=== PATIENT | male | born 1955 | race African-American/Black ===

== ENCOUNTER 2016-08-23 22:03 | Inpatient (IN) ==
[2016-08-23] MEDS ORDERED: ALBUTEROL/IPRATROPIUM 3 ML NEB RESP TX STA (23:14)
--- NOTE | 2016-08-23 23:17 | Emergency Department Note ---
Arrival - Arrival Chief Complaint: Chest Pain Stated Complaint: chest pains ED Nursing Triage Note: Chest pain on the right side "feels like pressure and some sticking me in the chest with a knife sometimes" hurts when he cough and takes a deep breath. Also c/o right jaw pain Denies any SOB Mode of Arrival: Wheelchair Limitations: No Limitations Source: Patient Time Seen by Provider: 08/23/16 23:03 - History of Present Illness HPI Narrative: Patient complains of sharp right sided chest pain for the past 3 days. He is also had a cough productive of laureano sputum. The pain is worse with cough, deep breath and movement. He denies nausea vomiting, shortness of breath or diaphoresis. He does have a history of CAD with a stent placed in 2009. He also has a history of hypertension, diabetes, high cholesterol and smoking. Allergies/Adverse Reactions: Allergies Allergy/AdvReac Type Severity Reaction Status Date / Time Penicillins Allergy Mild HIVES Verified 12/04/15 09:29 Home Medications: Home Medications Medication Instructions Recorded Confirmed Type Aspirin/Calcium Carbonate/Mag 81 mg PO DAILY 07/20/15 12/04/15 History [Aspirin Buffered 325 mg Tab] Clopidogrel [Plavix] 75 mg PO DAILY 07/20/15 12/04/15 History Ipratropium/Albuterol Inhaler 3 puff INH TID 07/20/15 12/04/15 History [Combivent Respimat Inhaler] Levofloxacin Tab [Levaquin Tab] 500 mg PO DAILY #7 tablet 07/20/15 12/04/15 Rx Metoprolol Succinate 100 mg PO BID 07/20/15 12/04/15 History Potassium Chloride 20 meq PO BID 07/20/15 12/04/15 History Trazodone HCl 50 mg PO BEDTIME PRN 07/20/15 12/04/15 History amLODIPine [Norvasc] 10 mg PO DAILY 07/20/15 12/04/15 History hydroCHLOROthiazide 25 mg PO DAILY 07/20/15 12/04/15 History [Hydrochlorothiazide] Doxycycline Hyclate 100 mg PO DAILY 12/04/15 12/04/15 History Lisinopril 20 mg PO BID 12/04/15 12/04/15 History Magnesium Oxide 420 mg PO BID 12/04/15 12/04/15 History Omeprazole [Prilosec] 40 mg PO BID 12/04/15 12/04/15 History Pravastatin Sodium [Pravachol] 40 mg PO DAILY 12/04/15 12/04/15 History hydrOXYzine HCL TAB [Atarax Tab] 25 mg PO BEDTIME PRN 12/04/15 12/04/15 History HYDROcodone/ACETAMIN 7.5-325 1 tablet PO Q4H PRN #30 tablet 12/05/15 Rx [[place] 7.5-325] Ketorolac Tab [Toradol Tab] 10 mg PO Q4H #10 tablet 12/27/15 Rx oxyCODONE/ACETAMINOPHEN 5-325 1 tablet PO Q4H #10 tablet 12/27/15 Rx [Percocet 5-325] methylPREDNISolone DOSEPAK [Medrol 4 mg PO DAILY #21 tablet 06/16/16 Rx Dosepak] traMADol TAB [Ultram] 50 mg PO Q6H PRN #20 tablet 06/16/16 Rx Review of System - Review of System 12 point system: reviewed and no additional remarkable complaints except as stated - Review of System Constitutional: Present: chills. Absent: diaphoresis, fever Head/Ears/Nose/Throat: Absent: nasal drainage, sore throat Respiratory: Present: cough. Absent: respiratory distress, wheezing Cardiovascular: Present: chest pain. 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) Neurology: No history of: Seizures HEENT: History of: Eye Problem (glasses) Endocrine: History of: Diabetes Mellitus (NIDDM) (Resolved), Dyslipidemia, Thyroid Disorder (dr sanchez III monitoring) Respiratory: History of: Bronchitis, Obstructive Sleep Apnea, Pneumonia (2015) Genitourinary: History of: Kidney Stones Gastrointestinal: History of: GERD, Polyps (removed) Musculoskeletal: History of: Back/Neck Problems (lower back pain) Other: History of: Eczema - Surgical History Cardiac Surgeries: Sugical HX of: Cardiac Catheterization (1 stent) Thoracic Surgeries: Surgical HX of;: Lithotripsy Abdominal Surgeries: Surgical HX of: Cholecystectomy (12/04/15), Colonoscopy, EGD Orthopedic Surgeries: Comment Only: Implanted Devices (1 cardiac stent) - Family History Family History: Reports;: Family Heart Disease (mother and father) - Social History Smoking Status: Current every day smoker Exam Physical Examination: GENERAL: Alert. No acute distress. HEENT: Normocephalic and atraumatic. There is no nasal drainage. No pharyngeal erythema or exudate. NECK: Normal inspection. Supple. No lymphadenopathy or meningismus. LUNGS: No respiratory distress. Good air movement. Wheezes bilaterally. HEART: Regular rate and rhythm. ABDOMEN: Soft, nontender and nondistended with normoactive bowel sounds. BACK: Normal inspection. SKIN: Color normal. Warm and dry. EXTREMITIES: Nontender. Normal range of motion. No pedal edema. NEUROLOGICAL/PSYCHIATRIC: Alert and oriented 3 with normal mood and affect. Cranial nerves normal. No motor or sensory deficit. Vital Signs: Vital Signs Temperature 97 F L 08/23/16 22:30 Pulse Rate 79 08/23/16 23:40 Respiratory Rate 16 08/23/16 23:40 Blood Pressure 166/75 08/23/16 22:30 O2 Sat by Pulse Oximetry 100 08/23/16 23:40 Course - Reevaluation(s) Reevaluation #1: Patient has remained stable in the ER. All of his cardiac workup is negative. I think his chest pain is more related to his bronchitis. He does have an area of atelectasis versus infiltrate in the left lower lobe. His white count is normal and he is afebrile and I favor atelectasis. His wheezing is a little bit improved after the nebulizer, however, his oxygen saturations are still 88-90% on room air. I think he will need to be admitted for nebs and steroids and possibly antibiotics. I have discussed this with Dr. Merchant and he will see the patient and admit. Time: 01:36 Results - Labs CBC & BMP: 08/23/16 22:59 08/23/16 22:59 Lab Results: I have reviewed the patients labs Labs: Laboratory Tests 08/23/16 08/23/16 22:59 22:59 INR 1.0 D-Dimer, Quantitative <= 0.5 CK-MB (CK-2) < 1.0 Troponin I < 0.015 - Impressions Chest x-ray shows some density in the left lower lobe consistent with atelectasis versus infiltrate. Disposition Clinical Impression: Chest pain, Bronchitis Case discussed with: patient, patient's family Disposition: Still a Patient Condition: Stable Time of Disposition: 01:34
[2016-08-23 23:31] LABS: Basophils # 0.1 10*3/uL (0.0-0.2); Basophils % 0.9 % (0.0-0.8); Eosinophils # 0.2 10*3/uL (0.0-0.87); Eosinophils % 4.1 % (0.00-10.9); Hematocrit 41.8 VOL% (42.0-52.0); Immature Granulocytes % 0.3 %; Immature Granulocytes Absolute 0.02 #; Lymphocytes # 1.4 10*3/uL (1.4-4.0); Lymphocytes % 24.9 % (21.2-54.2); Mean Corpuscular HGB Conc 33.5 GM/DL (32-36); Mean Corpuscular Hemoglobin 29 PG (27-34); Mean Corpuscular Volume 86.2 FL (87-102); Mean Platelet Volume 11.7 FL (9.6-12.0); Monocytes # 0.6 10*3/uL (0.11-0.8); Monocytes % 9.8 % (1.7-12.7); Neutrophils # 3.5 10*3/uL (1.4-7.4); Platelet Count 220 T/CUMM (130-400); Red Blood Count 4.85 MC/CUMM (3.8-5.5); Red Cell Distribution Width 15.3 % (9.3-17.3); White Blood Count 5.8 T/CUMM (4-12)
[2016-08-23 23:44] LABS: D-Dimer <= 0.5 MG/L FEU; PT Patient Result 10.3 SECS; Partial Thromboplastin Time 31.1 SECS (0-40)
[2016-08-23 23:55] LABS: Alanine Aminotransferase 26 U/L (16-61); Albumin 2.9 G/DL (3.4-5.0); Alkaline Phosphatase 90 U/L (45-117); Aspartate Amino Transferase 20 U/L (0-37); Bilirubin,Total < 0.39 MG/DL (0.2-1.0); Blood Urea Nitrogen 15 MG/DL (7-18); Calcium 8.9 MG/DL (8.5-10.1); Glucose 127 MG/DL (74-106); Osmolality,Calculated 285.1 MOS/KG (273-304); Potassium 3.4 MMOL/L (3.5-5.1); Sodium 142 MMOL/L (136-145); Total Protein 6.7 G/DL (6.4-8.3)
[2016-08-23 23:57] LABS: Troponin I Only < 0.015 NG/ML (0.00-0.045)
[2016-08-24] MEDS ORDERED: ALBUTEROL/IPRATROPIUM 3 ML NEB RESP TX STA (01:35)
[2016-08-24] MEDS ORDERED: methylPREDNISolone SOD SUC 125 MG/2 ML VIAL IV STA (01:35)
[2016-08-24] MEDS ORDERED: methylPREDNISolone SOD SUC 125 MG/2 ML VIAL ONE ×2 (01:44→02:05)
[2016-08-24] MEDS ORDERED: DEXTROSE 50% 25 GM/50 ML VIAL IV PRN ×2 (02:30→04:52)
[2016-08-24] MEDS ORDERED: ACETAMINOPHEN 325 MG TABLET PO PRN (02:30)
[2016-08-24] MEDS ORDERED: ONDANSETRON 4 MG/2 ML VIAL IV PRN (02:30)
[2016-08-24] MEDS ORDERED: GLUCAGON 1 MG VIAL IM PRN ×2 (02:30→04:52)
--- NOTE | 2016-08-24 05:46 | EKG Report ---
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
[2016-08-24 06:34] LABS: Troponin I Only < 0.015 NG/ML (0.00-0.045)
--- NOTE | 2016-08-24 06:57 | XRay Report ---
Referring Physician: Mathew Barton Exam: XR chest 1V portable Date: August 23, 2016 at 11:15 PM Reason: Chest pain, cough Comparison: Chest one view portable June 16, 2016 Findings: The cardiac silhouette is normal in size for the portable technique. A left cardiophrenic fat pad is suspected. There is slight prominence of the right minor fissure, but no focal consolidation, pneumothorax or pleural effusion is identified. No acute osseous process is seen. Impression: No acute cardiopulmonary process is identified. PROCEDURE INTERPRETED AT [facility] DEPARTMENT OF RADIOLOGY Final Report Signed by: Dr. Harley Gay
[2016-08-24] MEDS ORDERED: ALBUTEROL 2.5 MG/3 ML NEB RESP TX SCH (07:00)
[2016-08-24] MEDS ORDERED: ALBUTEROL/IPRATROPIUM 3 ML NEB RESP TX SCH (07:00)
[2016-08-24 07:47] LABS: Apearance,Urine CLEAR (Clear); Bilirubin,Urine Negative (Negative); Blood, Urine Negative (Negative); Glucose,Urine (UA) 50 mg/dL (Negative); Ketones,Urine Negative (Negative); Mucus,Urine Occasional /LPF (Occasional); Nitrite,Urine Negative (Negative); Protein,Urine 100 MG/DL; RBC,Urine <1 /HPF (0-4); Squamous Epithelial Cell,Urine Occasional /HPF (0-10); Urine Color Yellow (Yellow); Urine Specific Gravity 1.008 (1.001-1.035); Urine Urobilinogen < 2.0 EU/DL (0.2-1.0); WBC,Urine <1 /HPF (0-6)
[2016-08-24] MEDS ORDERED: methylPREDNISolone SOD SUC 125 MG/2 ML VIAL IV SCH (08:00)
[2016-08-24] MEDS: INSULIN REGULAR 100 UNIT/ML SUBCUT SCH ×4 (08:32→21:07)
[2016-08-24] MEDS ORDERED: traZODone 50 MG TABLET PO PRN (08:48)
[2016-08-24] MEDS ORDERED: hydrOXYzine HCL 25 MG TABLET PO PRN (08:48)
--- NOTE | 2016-08-24 08:49 | EKG Report ---
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
--- NOTE | 2016-08-24 08:59 | Internal Med History&Physical ---
Assessment and Plan (1) Chest pain Status: Acute Assessment and plan: 61-year-old male admitted to acute care * Chest pain. It is atypical in nature. Patient has history of coronary artery disease with prior stent and myocardial infarction. Will check CT angiogram of chest PE study. * History of coronary artery disease. Enzymes are negative. Will consult cardiology * Diabetes. Patient has been on Metformin. Will continue him on a sliding scale and will hold metformin for now. * Hypertension. Blood pressure is stable * COPD. Will continue Combivent inhaler. * Discussed with patient Current Visit: Yes (2) History of coronary artery disease Status: Acute Current Visit: Yes (3) Hypertension Status: Acute Current Visit: Yes (4) Diabetes Status: Acute Current Visit: Yes (5) COPD (chronic obstructive pulmonary disease) Status: Acute Current Visit: Yes History of Present Illness Chief complaint: Chest pain and shortness of breath History of present illness: Mr. Rosalio Samaniego is a 61 year old male with history of multiple medical problems including COPD, essential hypertension, coronary artery disease, diabetes, hyperlipidemia, osteoarthritis who was admitted through the emergency room with 3 day history of pleuritic type chest pain on the right side. Patient is a chronic smoker. Pain is associated with coughing and on taking a deep breath. He has coughed up phlegm. This time pain has been going on for about 3 days. He denies any nausea vomiting or diarrhea. He came to the ER just to make sure it was not his heart. He was seen in the office last week with right-sided abdominal pain. Patient had some hematuria and was set up for a renal colic CT. He denies any fever or chills. His energy level is fairly good. Patient is a single and lives alone. He is a chronic smoker but does not drink alcohol Home Medications Medication Instructions Recorded Confirmed Type Aspirin/Calcium Carbonate/Mag 81 mg PO DAILY 07/20/15 08/24/16 History [Aspirin Buffered 325 mg Tab] Clopidogrel [Plavix] 75 mg PO DAILY 07/20/15 08/24/16 History Ipratropium/Albuterol Inhaler 3 puff INH TID PRN 07/20/15 08/24/16 History [Combivent Respimat Inhaler] Metoprolol Succinate 100 mg PO BID 07/20/15 08/24/16 History Potassium Chloride 20 meq PO BID 07/20/15 08/24/16 History Trazodone HCl 50 mg PO BEDTIME PRN 07/20/15 08/24/16 History amLODIPine [Norvasc] 10 mg PO DAILY 07/20/15 08/24/16 History hydroCHLOROthiazide 37.5 mg PO DAILY 07/20/15 08/24/16 History [Hydrochlorothiazide] Lisinopril 20 mg PO BID 12/04/15 08/24/16 History Magnesium Oxide 420 mg PO BID 12/04/15 08/24/16 History Omeprazole [Prilosec] 40 mg PO BID 12/04/15 08/24/16 History Pravastatin Sodium [Pravachol] 40 mg PO DAILY 12/04/15 08/24/16 History hydrOXYzine HCL TAB [Atarax Tab] 25 mg PO BEDTIME PRN 12/04/15 08/24/16 History HYDROcodone/ACETAMIN 7.5-325 1 tablet PO Q4H PRN #30 tablet 12/05/15 08/24/16 Rx [[place] 7.5-325] Allergies Allergy/AdvReac Type Severity Reaction Status Date / Time Penicillins Allergy Mild HIVES Verified 12/04/15 09:29 Medical,Surgical,& Family Hx - Medical History Cardio: History of: CAD, Hypertension, [place] (x3 2010), 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) Neurology: No history of: Seizures HEENT: History of: Eye Problem (glasses) Endocrine: History of: Diabetes Mellitus (NIDDM) (Resolved), Dyslipidemia, Thyroid Disorder (dr sanchez III monitoring) Respiratory: History of: Bronchitis, Obstructive Sleep Apnea, Pneumonia (2015) Genitourinary: History of: Kidney Stones Gastrointestinal: History of: GERD, Polyps (removed) Musculoskeletal: History of: Back/Neck Problems (lower back pain) Other: History of: Eczema - Surgical History Cardiac Surgeries: Sugical HX of: Cardiac Catheterization (1 stent) Thoracic Surgeries: Surgical HX of;: Lithotripsy Abdominal Surgeries: Surgical HX of: Cholecystectomy (12/04/15), Colonoscopy, EGD Orthopedic Surgeries: Comment Only: Implanted Devices (1 cardiac stent) - Family History Family History: Reports;: Family Cancer, Family Heart Disease (mother and father ) - Social History Smoking Status: Current every day smoker Frequency of Alcohol Use: None Type of Drug Use: None Marital Status: Single Lives With:: Alone Functional capacity: independent ambulation 12 point system: reviewed and no additional remarkable complaints except as stated (As mentioned in HPI) Exam - Constitutional Vitals: Period Temp Pulse Resp BP Sys/Tapia Pulse Ox Last 24 Hr 96.5 F-97.8 F 80-88 19-20 152-158/73-74 95-96 Exam: Examination: GENERAL: NAD. HEENT: PERRLA. EOMI. Mucous membranes are moist. NECK: Neck is supple. No JVD. No carotid bruit. No thyromegaly. CVS: Regular rate and rhythm. S1 and S2 are normal. RESPIRATORY: Lungs are clear. ABDOMEN: Soft and nontender. Bowel sounds are present. No hepatosplenomegaly. EXT: No edema. Peripheral pulses are present. 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 Cranial nerves II through XII are grossly intact. Motor strength is 5 over 5 both upper and lower extremities. SKIN: Warm and dry. MSK: No obvious deformity. Results - Labs CBC & BMP: 08/23/16 22:59 08/23/16 22:59 Lab Results: I have reviewed the past 24 hour labs Quality Measures - Stroke Symptom Onset Unknown: No
[2016-08-24] MEDS ORDERED: ALBUTEROL/IPRATROPIUM 3 ML NEB RESP TX PRN (09:00)
[2016-08-24] MEDS ORDERED: PANTOPRAZOLE 40 MG TABLET PO SCH (09:00)
[2016-08-24] MEDS ORDERED: hydroCHLOROthiazide 25 MG TABLET PO SCH (09:00)
[2016-08-24] MEDS ORDERED: amLODIPine 10 MG TABLET PO SCH (09:00)
[2016-08-24] MEDS ORDERED: DOCUSATE SODIUM 100 MG CAPSULE PO SCH (09:00)
[2016-08-24] MEDS: MAGNESIUM OXIDE 400 MG TABLET PO SCH ×2 (09:13→21:08)
[2016-08-24] MEDS: ASPIRIN EC 81 MG TABLET PO SCH (09:20)
[2016-08-24] MEDS: CLOPIDOGREL 75 MG TABLET PO SCH (09:20)
[2016-08-24] MEDS: ENOXAPARIN 40 MG/0.4 ML SYRINGE SUBCUT SCH (09:20)
[2016-08-24] MEDS: POTASSIUM CHLORIDE 20 MEQ TABLET PO SCH ×2 (09:20→21:08)
[2016-08-24] MEDS: PANTOPRAZOLE 40 MG TABLET PO SCH ×2 (09:20→21:08)
[2016-08-24] MEDS: METOPROLOL SUCCINATE XL 100 MG TABLET PO SCH ×2 (09:20→21:08)
[2016-08-24] MEDS: LISINOPRIL 20 MG TABLET PO SCH ×2 (09:20→21:08)
--- NOTE | 2016-08-24 14:06 | CT Report ---
EXAM: CT chest PE study DATE: August 24, 2016 COMPARISON: CT abdomen and pelvis December 31, 2011 REASON: Pleuritic type chest pain TECHNIQUE: Axial images of the chest were obtained after administration of 150 cc of Omnipaque 350 intravenous contrast. Coronal and sagittal reformatted images were also acquired. The study was performed per pulmonary embolism protocol. Total DLP was 650.2 mGy*cm. FINDINGS: Pulmonary arteries: There is no evidence of pulmonary embolism through the segmental pulmonary arteries. Vascular/heart: The thoracic aorta is normal in size without evidence of dissection. There is mild scattered calcified plaque at the arteries. The heart is normal in size. No pericardial effusion is seen. Lymph nodes: There are a few upper normal-sized mediastinal and bilateral hilar lymph nodes. An AP window lymph node measures 0.8 cm in short axis diameter on image 58. Other mediastinum/lower neck: The thyroid is enlarged, and there is a poorly characterized nodule within the right thyroid lobe. Correlation with ultrasound would be helpful. Chest wall: Unremarkable. Lungs: There are minimal scattered opacities within both lungs, mainly within the lower lobes. This is most consistent with atelectasis. A 0.4 cm noncalcified nodule is seen within the basilar portion of the left lower lobe near the major fissure on image 96. This is stable compared to December 31, 2011, suggesting a benign process. There is also [id number] emphysema, mainly in a centrilobular distribution at the upper lung zones. No pneumothorax or pleural effusion is identified. Bones: There is mild degenerative change at the thoracic spine. No acute osseous process is seen. Upper abdomen: The patient is status post cholecystectomy. No acute process is seen within the upper abdomen. IMPRESSION: 1. No evidence of pulmonary embolism. 2. There are minimal scattered opacities within both lungs. This is most consistent with atelectasis. 3. Kpzc-[id number]-rzxrzadp emphysema. 4. Thyromegaly and nonspecific right thyroid nodule. Correlation with a thyroid ultrasound would be helpful. PROCEDURE INTERPRETED AT [facility] DEPARTMENT OF RADIOLOGY Final Report Signed by: Dr. Harley Gay
--- NOTE | 2016-08-24 14:26 | Cardiology Consult Note ---
I, Catarina Samayoa RN, am scribing for, and in the presence of, Wade Diego MD 14:21. Assessment and Plan - Time spent with patient Time spent with patient: Greater than 30 minutes (Due to assessment, planning, documentation, and medication review) (1) Chest pain Status: Acute Assessment and plan: The patient has very atypical chest pain. His symptoms sound pleuritic. His cardiac enzymes are all negative. His EKG doesn't show any acute changes. From my standpoint, I think could be discharged home. With his previous cardiac history, I think it would be appropriate to do a routine outpatient cardiac ischemic screening. I would like to set him up for a nuclear stress test in the clinic and a follow-up after that. Current Visit: Yes (2) History of coronary artery disease Status: Chronic Assessment and plan: History of acute MN in 2009, and he underwent percutaneous coronary intervention of mid right coronary artery using Taxus stent. Current Visit: Yes (3) Hypertension Status: Chronic Assessment and plan: Suboptimally controlled. I'm going to make some adjustments in his medication to try to optimize this. Current Visit: Yes (4) COPD (chronic obstructive pulmonary disease) Status: Chronic Current Visit: Yes (5) Tobacco abuse Status: Acute Current Visit: Yes (6) Diabetes Status: Acute Current Visit: Yes (7) Wheezing Status: Acute Assessment and plan: This is most likely related to his tobacco abuse. Smoking cessation was discussed today. Current Visit: Yes (8) Hypokalemia Status: Acute Assessment and plan: I think the hydrochlorothiazide is depleting his potassium. I'm going to stop this and try Aldactone instead. Current Visit: Yes History of Present Illness - Data of Consult Patient: new to practice Consult date: 08/24/16 Requesting Physician: Joel Rothman - Consult Narrative Reason for consult: chest pain History of present illness: PRIMARY DIRECTOR FIELD SERVICES[place] Mr. Rosalio Samaniego is a 61 year old black male not routinely followed by [facility]. Past medical history includes CAD, previous MN with emergent percutaneous coronary intervention of mid right coronary artery in 2009. Also has a history of COPD, hypertension, diabetes, hyperlipidemia, osteoarthritis, and he is a chronic smoker. He presented to the emergency room yesterday evening with complaints of chest pain that was associated with taking in a deep breath and also with severe coughing with onset being approximately 3 days prior. Twelve-lead EKG negative for acute ischemic changes. Serial cardiac biomarkers have been normal. Cardiology has been consulted to evaluate for complaints of chest pain. He is unsure when he has last seen a data analytics developer, and he does not routinely follow-up. He also is not sure when he last had an echocardiogram. Reports he has had a stress test in the last few years, but is unable to recall exactly when. He does report that he was unable to walk on the treadmill due to lower leg pain, and underwent nuclear evaluation. Reports he lived in [place], [place], at the time of his previous heart attack and emergent PCI. During exam, chest pain is non-reproducible. The patient's chest pain is described as mild to moderate and sharp in character, and on the right side of his chest. This is associated with a deep breath or coughing. This sounds pleuritic. He does not have any typical exertional angina. He does have significant wheezing, consistent with his tobacco abuse and/or bronchitis. The chest pain does not radiate. There are no associated symptoms such as nausea or diaphoresis. Reports he experiences these chest pains usually when he "gets to coughing real bad." Denies discomfort as being similar to S/S associated with previous MN. Denies recent or current dypnea on exertion, orthopnea, PND, palpitations, dizziness, presyncope, or other overt anginal complaint. He is currently anticoagulated with Plavix and ASA 325 mg. Labs reviewed. As above. Chemistry yesterday with potassium of 3.2 (PO supplement currently), sodium 142, creatinine 0.8 with GFR 119. Systolic BP 150- 175 mmHg. Current Medications Hydrocodone Bitart/Acetaminophen ([place] 7.5-325) 1 tablet PO Q4H PRN PRN Reason: Pain Moderate (4-7) Albuterol/Ipratropium (Duoneb) 3 ml RESP TX TID PRN PRN Reason: Shortness of Breath Amlodipine Besylate (Norvasc) 10 mg PO DAILY [facility] Last Admin: 08/24/16 09:20 Dose: 10 mg Aspirin () 81 mg PO DAILY [facility] Last Admin: 08/24/16 09:20 Dose: 81 mg Clopidogrel Bisulfate (Plavix) 75 mg PO DAILY [facility] Last Admin: 08/24/16 09:20 Dose: 75 mg Dextrose/Water (D50) 25 gm IV PRN PRN PRN Reason: Hypoglycemia with IV access Enoxaparin Sodium (Lovenox) 40 mg SUBCUT Q24H [facility] Last Admin: 08/24/16 09:20 Dose: 40 mg Glucagon () 1 mg IM PRN PRN PRN Reason: Hypoglycemia w/o IV access Hydrochlorothiazide () 37.5 mg PO DAILY [facility] Last Admin: 08/24/16 09:20 Dose: 37.5 mg Hydroxyzine HCl (Atarax Tab) 25 mg PO BEDTIME PRN PRN Reason: Itching Insulin Human Regular (Humulin R) 0 unit SUBCUT ACHS [facility] PRN Reason: Protocol Last Admin: 08/24/16 08:32 Dose: 6 unit Lisinopril (Prinivil) 20 mg PO BID [facility] Last Admin: 08/24/16 09:20 Dose: 20 mg Magnesium Oxide () 400 mg PO BID [facility] Last Admin: 08/24/16 09:13 Dose: 400 mg Metoprolol Succinate (Toprol Xl) 100 mg PO BID [facility] Last Admin: 08/24/16 09:20 Dose: 100 mg Pantoprazole Sodium (Protonix Tab) 40 mg PO BID [facility] Last Admin: 08/24/16 09:20 Dose: 40 mg Potassium Chloride (K Dur) 20 meq PO BID [facility] Last Admin: 08/24/16 09:20 Dose: 20 meq Pravastatin Sodium (Pravachol) 40 mg PO BEDTIME SB Trazodone HCl (Desyrel) 50 mg PO BEDTIME PRN PRN Reason: Sleep CC: Joel Rothman MD - Home Medications and Allergies Home Medications: Home Medications Medication Instructions Recorded Confirmed Type Aspirin/Calcium Carbonate/Mag 325 mg PO DAILY 07/20/15 08/24/16 History [Aspirin Buffered 325 mg Tab] Clopidogrel [Plavix] 75 mg PO DAILY 07/20/15 08/24/16 History Ipratropium/Albuterol Inhaler 3 puff INH TID PRN 07/20/15 08/24/16 History [Combivent Respimat Inhaler] Metoprolol Succinate 100 mg PO BID 07/20/15 08/24/16 History Potassium Chloride 20 meq PO BID 07/20/15 08/24/16 History Trazodone HCl 50 mg PO BEDTIME PRN 07/20/15 08/24/16 History amLODIPine [Norvasc] 10 mg PO DAILY 07/20/15 08/24/16 History hydroCHLOROthiazide 12.5 mg PO DAILY 07/20/15 08/24/16 History [Hydrochlorothiazide] Lisinopril 20 mg PO BID 12/04/15 08/24/16 History Magnesium Oxide 420 mg PO DAILY 12/04/15 08/24/16 History Omeprazole [Prilosec] 40 mg PO BID 12/04/15 08/24/16 History Pravastatin Sodium [Pravachol] 80 mg PO DAILY 12/04/15 08/24/16 History hydrOXYzine HCL TAB [Atarax Tab] 25 mg PO BEDTIME PRN 12/04/15 08/24/16 History HYDROcodone/ACETAMIN 7.5-325 1 tablet PO Q4H PRN #30 tablet 12/05/15 08/24/16 Rx [[place] 7.5-325] Cetirizine HCl [ZyrTEC Cap] 10 mg PO DAILY 08/24/16 08/24/16 History Clopidogrel [Plavix] 75 mg PO DAILY 08/24/16 08/24/16 History Ipratropium/Albuterol Inhaler 1 puff INH QID 08/24/16 08/24/16 History [Combivent Respimat Inhaler] Metoclopramide Tab [Reglan Tab] 10 mg PO ACHS 08/24/16 08/24/16 History Nitroglycerin 0.4 mg/Hr Patch 0.4 mg SL DAILY PRN 08/24/16 08/24/16 History [Nitro-Dur 0.4 mg/hr Patch] Tramadol HCl [Tramadol Tab] 50 mg PO Q6H PRN 08/24/16 08/24/16 History metFORMIN [Glucophage] 1,000 mg PO BID W/MEALS 08/24/16 08/24/16 History Allergies/Adverse Reactions: Allergies Allergy/AdvReac Type Severity Reaction Status Date / Time Penicillins Allergy Mild HIVES Verified 12/04/15 09:29 - Constitutional Constitutional: Absent: anorexia, chills, daytime sleepiness, excessive sweating , fever(s), frequent falls, night sweats, stops breathing during sleep, weakness , weight gain, weight loss - EENT Eyes: Absent: blurry vision, loss of vision Ears: Absent: decreased hearing Nose, mouth and throat: Absent: dysphagia, epistaxis, nasal congestion, neck pain, throat swelling, tongue swelling, vertigo - Cardiovascular Cardiovascular: Present: chest pain at rest (nonreproducible; associated with severe coughing and taking in a deep breath). Absent: chest pain with activity , claudication, diaphoresis, dyspnea, dyspnea on exertion, edema, radiating jaw , neck or arm pain, lightheadedness, orthopnea, palpitations, PND - Respiratory Respiratory: Present: cough, change in phlegm color (laureano colored). Absent: dyspnea, hemoptysis, dyspnea on exertion, wheezing - Gastrointestinal Gastrointestinal: Absent: abdominal pain, bloating, diarrhea, dysphagia, heartburn, hematochezia, melena, nausea, vomiting, jaundice - Genitourinary Genitourinary: Present: hematuria (none presently; seen by Dr. Rothman in office last week for c/o. For renal colic CT). Absent: difficulty urinating, dysuria, flank pain, nocturia - Musculoskeletal Musculoskeletal: Present: arthralgias. Absent: limited range of motion - Neurological Neurological: Absent: abnormal gait, abnormal speech, confusion, dizziness, frequent falls, syncope, tremor(s) - Psychiatric Psychiatric: Absent: anxiety, depression - Endocrine Endocrine: Absent: cold intolerance, heat intolerance - Hematologic/Lymphatic Hematologic/Lymphatic: Absent: easy bleeding, easy bruising Medical,Surgical,& Family Hx - Medical History Cardio: History of: CAD, Hypertension, MN (2010; acute MN), Cardiovascular Problems (data analytics developer at [facility] pt unsure of name) No history of: Cardiac Dysrhythmia, PVD, Valvular Heart Disease Psychological: No history of: Anxiety Disorders, Depression Neurology: No history of: Seizures, TIA, Vertigo HEENT: History of: Eye Problem (corrective lenses) Endocrine: History of: Diabetes Mellitus (NIDDM) (Resolved), Dyslipidemia, Thyroid Disorder (dr sanchez III monitoring) Rheumatology: No history of;: Gout Respiratory: History of: Bronchitis, Obstructive Sleep Apnea, Pneumonia (2015) Genitourinary: History of: Kidney Stones Gastrointestinal: History of: GERD, Polyps (removed) No history of: Gastrointestinal Bleed Musculoskeletal: History of: Back/Neck Problems (lower back pain) Hematology: No history of: Bleeding Problems Other: History of: Eczema - Surgical History Cardiac Surgeries: Sugical HX of: Cardiac Catheterization (PCI mRCA 2009) Thoracic Surgeries: Surgical HX of;: Lithotripsy Abdominal Surgeries: Surgical HX of: Cholecystectomy (12/04/15), Colonoscopy, EGD Orthopedic Surgeries: Comment Only: Implanted Devices (1 cardiac stent) - Family History Family History: Reports;: Family Cancer, Family Heart Disease (mother and father ) - Social History Smoking Status: Current every day smoker Frequency of Alcohol Use: None Type of Drug Use: None Physical Examination Vital Signs Temp Pulse Resp BP Pulse Ox 97 F L 80 20 166/75 93 L 08/23/16 22:30 08/23/16 22:30 08/23/16 22:30 08/23/16 22:30 08/23/16 22:30 General: Present: Appears Well, No Apparent Distress HEENT: Present: PERRL, Mucus Membranes Moist Neck: Present: Supple Neck, Midline Trachea, No JVD/HJR, No Masses, No Bruit Cardiac: Present: Reg Rate and Rhythm, No Murmur. Absent: Tachycardia, Bradycardia Lungs: Present: Decreased Breath Sounds, Wheezes, No Rales Neuro: Present: Cranial Nerve 2-12 Intact, Grossly Intact. Absent: Tingling, Weakness, Resting Tremor, Essential Tremor Abdomen: Present: Soft, Active Bowel Sounds, No Masses. Absent: Ascites, Tender , Firm Skin: Present: Clear. Absent: Rash, Suspicious Lesions Musculoskeletal: Present: Normal Range of Motion. Absent: Erythematous Joints Gait: Present: Normal Gait Extremities: Present: No Clubbing, No Cyanosis, No Edema, Normal Upper Extr. Pulses (3+ bilaterally), Normal Lower Extr. Pulses (2+ bilaterally), Capillary Refill (normal) Result/EKG - Labs CBC & BMP: 08/23/16 22:59 08/23/16 22:59 Lab Results: I have reviewed the past 24 hour labs Labs: Laboratory Results - last 24 hr 08/24/16 08/24/16 08/24/16 05:31 07:05 07:26 POC Glucose 266 H Total Creatine Kinase 53 CK-MB (CK-2) < 1.0 Troponin I < 0.015 Urine Color Yellow Urine Appearance Clear Urine pH 6.0 Ur Specific [place] 1.008 Urine Protein 100 Urine Glucose (UA) 50 Urine Ketones Negative Urine Blood Negative Urine Nitrate Negative Urine Bilirubin Negative Urine Urobilinogen < 2.0 H Urine Leukocytes Negative Urine RBC <1 Urine WBC <1 Ur Squamous Epith Cells Occasional Urine Mucus Occasional Ur Culture Indicated? Not indicated 08/24/16 11:26 POC Glucose 241 H Total Creatine Kinase CK-MB (CK-2) Troponin I Urine Color Urine Appearance Urine pH Ur Specific [place] Urine Protein Urine Glucose (UA) Urine Ketones Urine Blood Urine Nitrate Urine Bilirubin Urine Urobilinogen Urine Leukocytes Urine RBC Urine WBC Ur Squamous Epith Cells Urine Mucus Ur Culture Indicated? - Diagnostic Findings Procedure: Chest x-ray: image reviewed by me, report reviewed by me - EKG EKG results: interpreted by me, no acute changes EKG shows: sinus rhythm Quality Measures - Stroke Symptom Onset Unknown: No I, Wade Diego MD, personally performed the services described in this documentation, ascribed by Catarina Samayoa RN in my presence, and it is both accurate and complete [id number] .
[2016-08-24] MEDS: SPIRONOLACTONE 25 MG TABLET PO SCH (14:41)
[2016-08-24] MEDS ORDERED: PRAVASTATIN 40 MG TABLET PO SCH (21:00)
[2016-08-25 06:31] LABS: Basophils % 0.2 % (0.0-0.8); Eosinophils % 0.2 % (0.00-10.9); Hematocrit 43.5 VOL% (42.0-52.0); Hemoglobin 14.5 GM/DL (14.0-18.0); Immature Granulocytes % 0.4 %; Immature Granulocytes Absolute 0.04 #; Lymphocytes # 1.4 10*3/uL (1.4-4.0); Lymphocytes % 13.7 % (21.2-54.2); Mean Corpuscular HGB Conc 33.3 GM/DL (32-36); Mean Corpuscular Hemoglobin 29 PG (27-34); Mean Corpuscular Volume 85.6 FL (87-102); Mean Platelet Volume 11.7 FL (9.6-12.0); Monocytes # 0.8 10*3/uL (0.11-0.8); Neutrophils # 8.1 10*3/uL (1.4-7.4); Neutrophils % 77.5 % (38.7-73.9); Platelet Count 228 T/CUMM (130-400); Red Blood Count 5.08 MC/CUMM (3.8-5.5); Red Cell Distribution Width 15.1 % (9.3-17.3); White Blood Count 10.4 T/CUMM (4-12)
[2016-08-25 07:40] LABS: Calcium 9.3 MG/DL (8.5-10.1); Magnesium 2.2 MG/DL (1.8-2.4); Potassium 3.9 MMOL/L (3.5-5.1)
--- NOTE | 2016-08-25 08:06 | Discharge Summary ---
Hospital Course - Hospital Course Hospital Course: Patient is a 61-year-old male with history of coronary artery disease, hypertension, diabetes, COPD who was admitted through the emergency room with the right-sided chest pain. It was atypical in nature. Patient had negative cardiac enzymes and was seen in consultation by cardiology. He also had a CT angiogram done of the chest. It was negative for any acute embolism. He does have significant emphysema. He continues to smoke. Patient's blood sugars were under good control. He has improved. He will be given Levaquin 500 mg daily for 7 days. I have again urged him to stop smoking. I will see him back in office in 2 weeks. Diagnosis - Discharge Diagnosis (1) Chest pain Status: Acute (2) History of coronary artery disease Status: Chronic (3) Hypertension Status: Chronic (4) Diabetes Status: Acute (5) COPD (chronic obstructive pulmonary disease) Status: Chronic Specialty Discharge - Follow Up or Referrals Follow up with: Wade Diego MD [Physician] - 2 Weeks (FOLLOW UP IN 2-3 WEEKS. NEED OP STRESS TEST) Discharge Plan - Discharge Data Disposition: Disch To Home/Self Care Condition at Discharge: Stable Activity: resume usual activities as tolerated - Discharge Medications New levoFLOXacin [Levaquin] 500 mg PO DAILY #7 tablet Spironolactone [Aldactone] 25 mg PO DAILY #30 tablet Continue Trazodone HCl 50 mg PO BEDTIME PRN PRN Reason: Sleep Potassium Chloride 20 meq PO BID Metoprolol Succinate 100 mg PO BID hydroCHLOROthiazide [Hydrochlorothiazide] 12.5 mg PO DAILY amLODIPine [Norvasc] 10 mg PO DAILY Ipratropium/Albuterol Inhaler [Combivent Respimat Inhaler] 3 puff INH TID PRN PRN Reason: Shortness Of Breath Clopidogrel [Plavix] 75 mg PO DAILY Aspirin/Calcium Carbonate/Mag [Aspirin Buffered 325 mg Tab] 325 mg PO DAILY hydrOXYzine HCL TAB [Atarax Tab] 25 mg PO BEDTIME PRN PRN Reason: Itching Lisinopril 20 mg PO BID Magnesium Oxide 420 mg PO DAILY Omeprazole [Prilosec] 40 mg PO BID Pravastatin Sodium [Pravachol] 80 mg PO DAILY HYDROcodone/ACETAMIN 7.5-325 [[place] 7.5-325] 1 tablet PO Q4H PRN #30 tablet PRN Reason: Pain Moderate (4-7) metFORMIN [Glucophage] 1,000 mg PO BID W/MEALS Clopidogrel [Plavix] 75 mg PO DAILY Ipratropium/Albuterol Inhaler [Combivent Respimat Inhaler] 1 puff INH QID Nitroglycerin 0.4 mg/Hr Patch [Nitro-Dur 0.4 mg/hr Patch] 0.4 mg SL DAILY PRN PRN Reason: [place] pain Metoclopramide Tab [Reglan Tab] 10 mg PO ACHS Tramadol HCl [Tramadol Tab] 50 mg PO Q6H PRN PRN Reason: pain Cetirizine HCl [ZyrTEC Cap] 10 mg PO DAILY - Follow Up or Referral Follow Up: Wade Diego MD [Physician] - 2 Weeks (FOLLOW UP IN 2-3 WEEKS. NEED OP STRESS TEST) - Forms/Instructions Additional Discharge Instructions: Appointment in office in 2-3 weeks Exam - Constitutional Vitals: Period Temp Pulse Resp BP Sys/Tapia Pulse Ox Last 24 Hr 97.4 F-98.1 F 64-92 18-74 154-161/65-85 94-97 Exam: Examination: GENERAL: NAD. HEENT: PERRLA. EOMI. NECK: Neck is supple. CVS: Regular rate and rhythm. S1 and S2 are normal. RESPIRATORY: Lungs are clear. ABDOMEN: Soft and nontender. 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 MSK: No obvious deformity. Discharge Results Procedures and tests throughout hospitalization: Pending Orders 08/26/16 04:00 BMP w/ Mg [Basic Metabolic Panel w/Mg] IN AM 08/27/16 04:00 BMP w/ Mg [Basic Metabolic Panel w/Mg] IN AM 08/28/16 04:00 BMP w/ Mg [Basic Metabolic Panel w/Mg] IN AM Labs on day of discharge: Labs from last 24 hours 08/25/16 08/25/16 08/24/16 05:39 05:39 19:38 WBC 10.4 D RBC 5.08 Hgb 14.5 Hct 43.5 MCV 85.6 L MCH 29 MCHC 33.3 RDW 15.1 Plt Count 228 MPV 11.7 Neut % (Auto) 77.5 H Lymph % (Auto) 13.7 L [place] % (Auto) 8.0 Eos % (Auto) 0.2 Baso % (Auto) 0.2 Neut # (Auto) 8.1 H Lymph # (Auto) 1.4 [place] # (Auto) 0.8 Eos # (Auto) 0.0 Baso # (Auto) 0.0 Immature Gran % 0.4 Nucleated RBC % 0.0 Immature Gran # 0.04 Nucleated RBCs # 0.00 Sodium 143 Potassium 3.9 Chloride 106 Carbon Dioxide 28 Anion Gap 12.9 BUN 14 Creatinine 0.70 GFR Calculation 126 BUN/Creatinine Ratio 20.00 Glucose 173 H POC Glucose 197 H Calculated Osmolality 289.0 Calcium 9.3 Magnesium 2.2 08/24/16 08/24/16 15:53 11:26 WBC RBC Hgb Hct MCV MCH MCHC RDW Plt Count MPV Neut % (Auto) Lymph % (Auto) [place] % (Auto) Eos % (Auto) Baso % (Auto) Neut # (Auto) Lymph # (Auto) [place] # (Auto) Eos # (Auto) Baso # (Auto) Immature Gran % Nucleated RBC % Immature Gran # Nucleated RBCs # Sodium Potassium Chloride Carbon Dioxide Anion Gap BUN Creatinine GFR Calculation BUN/Creatinine Ratio Glucose POC Glucose 259 H 241 H Calculated Osmolality Calcium Magnesium DS: Provider Date of admission: 08/24/16 02:01 Primary care physician: . No PCP Attending physician on admission: Meg Carcamo MD Consults: 08/24/16 08:49 Consult to Physician [CONS] Routine Comment: Chest pain Consulting Provider: Cardiology - [facility] Person Notified: KAT Date Notified: 08/24/16 Time Notified: 10:36 Discharging clinician: Joel Rothman MD
[2016-08-25] MEDS: LISINOPRIL 20 MG TABLET PO SCH (08:29)
[2016-08-25] MEDS: SPIRONOLACTONE 25 MG TABLET PO SCH (08:29)
[2016-08-25] MEDS: INSULIN REGULAR 100 UNIT/ML SUBCUT SCH (08:29)
[2016-08-25] MEDS: CLOPIDOGREL 75 MG TABLET PO SCH (08:29)
[2016-08-25] MEDS: MAGNESIUM OXIDE 400 MG TABLET PO SCH (08:30)
[2016-08-25] MEDS: METOPROLOL SUCCINATE XL 100 MG TABLET PO SCH (08:30)
[2016-08-25] MEDS: PANTOPRAZOLE 40 MG TABLET PO SCH (08:30)
[2016-08-25] MEDS: ASPIRIN EC 81 MG TABLET PO SCH (08:30)
[2016-08-25] MEDS: POTASSIUM CHLORIDE 20 MEQ TABLET PO SCH (08:30)
[2016-08-25] MEDS: ENOXAPARIN 40 MG/0.4 ML SYRINGE SUBCUT SCH (08:30)
[2016-08-25] MEDS ORDERED: ALBUTEROL/IPRATROPIUM 3 ML NEB RESP TX STA (08:36)
--- NOTE | 2016-08-25 09:24 | Cardiology Progress Note ---
Yao Licea Vanessa, RN, am scribing for, and in the presence of, Wade Diego MD 09:24. Assessment and Plan - Time spent with patient Time spent with patient: Greater than 30 minutes (1) Chest pain Status: Acute Assessment and plan: This patient had atypical chest pain which has completely resolved. EKG without acute changes, and cardiac enzymes are negative. From a cardiac standpoint, he can be discharged home. We're going to set him up with an outpatient cardiac ischemic screening and subsequent follow-up with me. Current Visit: Yes (2) History of coronary artery disease Status: Chronic Assessment and plan: History of acute ID in 2009, and he underwent percutaneous coronary intervention of mid right coronary artery using Taxus stent. Current Visit: Yes (3) Hypokalemia Status: Acute Assessment and plan: HCTZ discontinued yesterday. Aldactone 25 mg by mouth daily initiated. Potassium is improved today to 3.9. Current Visit: Yes (4) Hypertension Status: Chronic Assessment and plan: Suboptimally controlled. Adjust medication regimen accordingly. 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 Santamaria is seen in follow-up today for atypical chest pain. He is awake and alert this morning, and he reports he has experienced no further chest pain or other discomfort. No shortness of breath. Afebrile, vitals have been stable. Hypokalemia is improved, and today potassium is 3.9. Magnesium is 2.2. Current Medications Hydrocodone Bitart/Acetaminophen ([place] 7.5-325) 1 tablet PO Q4H PRN PRN Reason: Pain Moderate (4-7) Albuterol/Ipratropium (Duoneb) 3 ml RESP TX TID PRN PRN Reason: Shortness of Breath Aspirin () 81 mg PO DAILY [facility] Last Admin: 08/24/16 09:20 Dose: 81 mg Clopidogrel Bisulfate (Plavix) 75 mg PO DAILY [facility] Last Admin: 08/24/16 09:20 Dose: 75 mg Dextrose/Water (D50) 25 gm IV PRN PRN PRN Reason: Hypoglycemia with IV access Enoxaparin Sodium (Lovenox) 40 mg SUBCUT Q24H [facility] Last Admin: 08/24/16 09:20 Dose: 40 mg Glucagon () 1 mg IM PRN PRN PRN Reason: Hypoglycemia w/o IV access Hydroxyzine HCl (Atarax Tab) 25 mg PO BEDTIME PRN PRN Reason: Itching Insulin Human Regular (Humulin R) 0 unit SUBCUT ACHS SB PRN Reason: Protocol Last Admin: 08/24/16 21:07 Dose: 2 unit Lisinopril (Prinivil) 20 mg PO BID [facility] Last Admin: 08/24/16 21:08 Dose: 20 mg Magnesium Oxide () 400 mg PO BID [facility] Last Admin: 08/24/16 21:08 Dose: 400 mg Metoprolol Succinate (Toprol Xl) 100 mg PO BID [facility] Last Admin: 08/24/16 21:08 Dose: 100 mg Nifedipine (Procardia Xl) 30 mg PO BEDTIME [facility] Last Admin: 08/24/16 21:08 Dose: 30 mg Pantoprazole Sodium (Protonix Tab) 40 mg PO BID [facility] Last Admin: 08/24/16 21:08 Dose: 40 mg Potassium Chloride (K Dur) 20 meq PO BID [facility] Last Admin: 08/24/16 21:08 Dose: 20 meq Pravastatin Sodium (Pravachol) 40 mg PO BEDTIME [facility] Last Admin: 08/24/16 21:07 Dose: 40 mg Spironolactone (Aldactone) 25 mg PO DAILY [facility] Last Admin: 08/24/16 14:41 Dose: 25 mg Trazodone HCl (Desyrel) 50 mg PO BEDTIME PRN PRN Reason: Sleep Exam (Progress Note) - Constitutional Vitals: Period Temp Pulse Resp BP Sys/Tapia Pulse Ox Last 24 Hr 96.5 F-98.1 F 64-92 18-74 154-161/65-85 94-97 Exam: General: Present: Appears Well, No Apparent Distress HEENT: Present: PERRL, Mucus Membranes Moist Neck: Present: Supple Neck, Midline Trachea, No JVD/HJR, No Masses, No Bruit Cardiac: Present: Reg Rate and Rhythm, No Murmur. Absent: Tachycardia, Bradycardia Lungs: Present: Decreased Breath Sounds, Wheezes, No Rales Neuro: Present: Cranial Nerve 2-12 Intact, Grossly Intact. Absent: Tingling, Weakness, Resting Tremor, Essential Tremor Abdomen: Present: Soft, Active Bowel Sounds, No Masses. Absent: Ascites, Tender , Firm Skin: Present: Clear. Absent: Rash, Suspicious Lesions Musculoskeletal: Present: Normal Range of Motion. Absent: Erythematous Joints Gait: Present: Normal Gait Extremities: Present: No Clubbing, No Cyanosis, No Edema, Normal Upper Extr. Pulses (3+ bilaterally), Normal Lower Extr. Pulses (2+ bilaterally), Capillary Refill (lidya Result/EKG - Labs CBC & BMP: 08/25/16 05:39 08/25/16 05:39 Lab Results: I have reviewed the past 24 hour labs Labs: Laboratory Results - last 24 hr 08/24/16 08/24/16 08/24/16 07:05 11:26 15:53 WBC RBC Hgb Hct MCV MCH MCHC RDW Plt Count MPV Neut % (Auto) Lymph % (Auto) [place] % (Auto) Eos % (Auto) Baso % (Auto) Neut # (Auto) Lymph # (Auto) [place] # (Auto) Eos # (Auto) Baso # (Auto) Immature Gran % Nucleated RBC % Immature Gran # Nucleated RBCs # Sodium Potassium Chloride Carbon Dioxide Anion Gap BUN Creatinine GFR Calculation BUN/Creatinine Ratio Glucose POC Glucose 241 H 259 H Calculated Osmolality Calcium Magnesium Urine Color Yellow Urine Appearance Clear Urine pH 6.0 Ur Specific [place] 1.008 Urine Protein 100 Urine Glucose (UA) 50 Urine Ketones Negative Urine Blood Negative Urine Nitrate Negative Urine Bilirubin Negative Urine Urobilinogen < 2.0 H Urine Leukocytes Negative Urine RBC <1 Urine WBC <1 Ur Squamous Epith Cells Occasional Urine Mucus Occasional Ur Culture Indicated? Not indicated 08/24/16 08/25/16 08/25/16 19:38 05:39 05:39 WBC 10.4 D RBC 5.08 Hgb 14.5 Hct 43.5 MCV 85.6 L MCH 29 MCHC 33.3 RDW 15.1 Plt Count 228 MPV 11.7 Neut % (Auto) 77.5 H Lymph % (Auto) 13.7 L [place] % (Auto) 8.0 Eos % (Auto) 0.2 Baso % (Auto) 0.2 Neut # (Auto) 8.1 H Lymph # (Auto) 1.4 [place] # (Auto) 0.8 Eos # (Auto) 0.0 Baso # (Auto) 0.0 Immature Gran % 0.4 Nucleated RBC % 0.0 Immature Gran # 0.04 Nucleated RBCs # 0.00 Sodium 143 Potassium 3.9 Chloride 106 Carbon Dioxide 28 Anion Gap 12.9 BUN 14 Creatinine 0.70 GFR Calculation 126 BUN/Creatinine Ratio 20.00 Glucose 173 H POC Glucose 197 H Calculated Osmolality 289.0 Calcium 9.3 Magnesium 2.2 Urine Color Urine Appearance Urine pH Ur Specific [place] Urine Protein Urine Glucose (UA) Urine Ketones Urine Blood Urine Nitrate Urine Bilirubin Urine Urobilinogen Urine Leukocytes Urine RBC Urine WBC Ur Squamous Epith Cells Urine Mucus Ur Culture Indicated? - EKG EKG results: interpreted by me Quality Measures - Stroke Symptom Onset Unknown: No Specialty Discharge - Follow Up or Referrals Follow up with: Wade Diego MD [Physician] - 08/31/16 10:15 am (08/31/16 STRESS TEST NPO AFTER MIDNIGHT OF 08/30/16. DR DIEGO APPOINMENT IS 09/10/16 2:50 P.M. [phone]) I, Wade Diego MD, personally performed the services described in this documentation, ascribed by Catarina Samayoa RN in my presence, and it is both accurate and complete [phone] .
[2016-08-25 09:59] VITALS: BP 153/73
== END 2016-08-25 09:45 | disposition home or self-care (01) | DRG 313 ==
LOC: N.ED 22:03 → N.EDINP 08-24 02:01 → SUATTDRO 08-24 02:01 → N.2E 08-24 02:53
PROVIDERS: ADMIT Internal Medicine; ATTEND Internal Medicine

== ENCOUNTER 2017-03-04 22:31 | Inpatient (IN) ==
[2017-03-04 23:29] LABS: Basophils % 0.1 % (0.0-0.8); Eosinophils % 0.1 % (0.00-10.9); Hematocrit 40.5 VOL% (42.0-52.0); Immature Granulocytes % 0.4 %; Immature Granulocytes Absolute 0.03 #; Lymphocytes # 0.9 10*3/uL (1.4-4.0); Lymphocytes % 11.8 % (21.2-54.2); Mean Corpuscular HGB Conc 34.6 GM/DL (32-36); Mean Corpuscular Hemoglobin 29 PG (27-34); Mean Corpuscular Volume 82.5 FL (87-102); Mean Platelet Volume 11.4 FL (9.6-12.0); Monocytes # 0.1 10*3/uL (0.11-0.8); Monocytes % 1.8 % (1.7-12.7); Neutrophils # 6.7 10*3/uL (1.4-7.4); Neutrophils % 85.8 % (38.7-73.9); Platelet Count 224 T/CUMM (130-400); Red Blood Count 4.91 MC/CUMM (3.8-5.5); Red Cell Distribution Width 15.1 % (9.3-17.3); White Blood Count 7.9 T/CUMM (4-12)
[2017-03-04 23:49] LABS: VBG Base Excess -0.3 MEQ/L (0-4); VBG HCO3 23.8 MEQ/L (24-28); VBG Oxygen Saturation 95.7 %; VBG PCO2 37.4 MMHG (41-51); VBG PH 7.421; VBG PO2 74.8 MMHG (17-40)
[2017-03-04 23:56] LABS: Alanine Aminotransferase 18 U/L (16-61); Albumin 3.5 G/DL (3.4-5.0); Alkaline Phosphatase 101 U/L (45-117); Aspartate Amino Transferase 16 U/L (0-37); Bilirubin,Total < 0.39 MG/DL (0.2-1.0); Blood Urea Nitrogen 17 MG/DL (7-18); Calcium 9.2 MG/DL (8.5-10.1); Glucose 155 MG/DL (74-106); Osmolality,Calculated 279.7 MOS/KG (273-304); Potassium 3.8 MMOL/L (3.5-5.1); Sodium 138 MMOL/L (136-145); Total Protein 7.3 G/DL (6.4-8.3)
[2017-03-05] MEDS ORDERED: CEFEPIME 2,000 MG in SODIUM CHLORIDE 0.9% 100 ML IV STA (00:22)
[2017-03-05] MEDS ORDERED: VANCOMYCIN INJ 1,000 MG in SODIUM CHLORIDE 0.9% 250 ML IV STA (00:22)
[2017-03-05] MEDS ORDERED: VANCOMYCIN 1,000 MG VIAL ONE (00:26)
[2017-03-05] MEDS ORDERED: ONDANSETRON 4 MG/2 ML VIAL IV PRN (01:09)
[2017-03-05] MEDS ORDERED: LEVOFLOXACIN INJ 500 MG in PREMIX 1 EACH IV STA (01:17)
[2017-03-05] MEDS ORDERED: methylPREDNISolone SOD SUC 125 MG/2 ML VIAL IV STA (01:21)
[2017-03-05] MEDS ORDERED: DEXTROSE 5% NACL 0.9% 1,000 ML IV SCH (01:30)
[2017-03-05] MEDS ORDERED: LEVOFLOXACIN INJ 100 ML IV ONE (01:57)
[2017-03-05] MEDS ORDERED: ALBUTEROL/IPRATROPIUM 3 ML NEB RESP TX PRN (02:02)
[2017-03-05] MEDS ORDERED: GLUCAGON 1 MG VIAL IM PRN (08:42)
[2017-03-05] MEDS ORDERED: DEXTROSE 50% 25 GM/50 ML VIAL IV PRN ×2 (08:42→08:45)
[2017-03-05] MEDS ORDERED: PRAVASTATIN 40 MG TABLET PO SCH (09:00)
[2017-03-05] MEDS ORDERED: CILOSTAZOL 100 MG TABLET PO SCH (09:00)
[2017-03-05] MEDS ORDERED: NON-FORMULARY MEDICATION (Omeprazole [Prilosec] 40 MG) PO SCH (09:00)
[2017-03-05 09:44] LABS: PT Patient Result 10.1 SECS; Partial Thromboplastin Time 28.6 SECS (0-40)
[2017-03-05] MEDS: CARVEDILOL 25 MG TABLET PO SCH ×2 (10:17→20:54)
[2017-03-05] MEDS: VALSARTAN 160 MG TABLET PO SCH (10:17)
[2017-03-05] MEDS: ASPIRIN EC 81 MG TABLET PO SCH (10:17)
[2017-03-05] MEDS: POTASSIUM CHLORIDE 20 MEQ TABLET PO SCH ×2 (10:18→20:53)
[2017-03-05] MEDS: MAGNESIUM OXIDE 400 MG TABLET PO SCH ×2 (10:18→20:54)
[2017-03-05] MEDS: PANTOPRAZOLE 40 MG TABLET PO SCH (10:18)
[2017-03-05] MEDS: hydroCHLOROthiazide 12.5 MG CAPSULE PO SCH (10:18)
[2017-03-05] MEDS: LISINOPRIL 20 MG TABLET PO SCH ×2 (10:18→20:55)
[2017-03-05] MEDS: methylPREDNISolone SOD SUC 40 MG/1 ML VIAL IV SCH ×2 (10:19→17:24)
[2017-03-05] MEDS: METOCLOPRAMIDE 5 MG TABLET PO SCH (10:19)
[2017-03-05] MEDS: INSULIN LISPRO 100 UNIT/ML SUBCUT SCH ×3 (12:32→22:46)
[2017-03-05] MEDS: SUCRALFATE 1 GM TABLET PO SCH ×3 (12:33→20:55)
[2017-03-05] MEDS: ALBUTEROL/IPRATROPIUM 3 ML NEB RESP TX SCH ×2 (13:46→19:30)
[2017-03-05] MEDS ORDERED: methylPREDNISolone SOD SUC 125 MG/2 ML VIAL IV SCH (14:00)
[2017-03-05] MEDS ORDERED: CLOPIDOGREL 75 MG TABLET PO SCH (15:00)
[2017-03-05] MEDS: metFORMIN 500 MG TABLET PO SCH (17:23)
[2017-03-05] MEDS: PRAVASTATIN 40 MG TABLET PO SCH (20:54)
[2017-03-06] MEDS: ALBUTEROL/IPRATROPIUM 3 ML NEB RESP TX SCH ×4 (00:14→19:49)
[2017-03-06] MEDS: LEVOFLOXACIN INJ 500 MG in PREMIX 1 EACH IV SCH (02:28)
[2017-03-06] MEDS: methylPREDNISolone SOD SUC 40 MG/1 ML VIAL IV SCH ×3 (02:29→16:36)
[2017-03-06 02:31] LABS: Basophils % 0.1 % (0.0-0.8); Hematocrit 38.2 VOL% (42.0-52.0); Hemoglobin 12.8 GM/DL (14.0-18.0); Immature Granulocytes % 0.5 %; Immature Granulocytes Absolute 0.07 #; Lymphocytes % 7.1 % (21.2-54.2); Mean Corpuscular HGB Conc 33.5 GM/DL (32-36); Mean Corpuscular Hemoglobin 28 PG (27-34); Mean Platelet Volume 11.4 FL (9.6-12.0); Monocytes # 0.6 10*3/uL (0.11-0.8); Monocytes % 3.9 % (1.7-12.7); Neutrophils # 12.7 10*3/uL (1.4-7.4); Neutrophils % 88.4 % (38.7-73.9); Platelet Count 198 T/CUMM (130-400); Red Cell Distribution Width 15.3 % (9.3-17.3); White Blood Count 14.4 T/CUMM (4-12)
[2017-03-06 03:10] LABS: Calcium 8.9 MG/DL (8.5-10.1); Magnesium 2.2 MG/DL (1.8-2.4); Osmolality,Calculated 284.4 MOS/KG (273-304)
[2017-03-06 03:31] LABS: Risk Ratio 1.52
[2017-03-06] MEDS: INSULIN LISPRO 100 UNIT/ML SUBCUT SCH ×4 (07:56→21:09)
[2017-03-06] MEDS: VALSARTAN 160 MG TABLET PO SCH (09:48)
[2017-03-06] MEDS: LISINOPRIL 20 MG TABLET PO SCH ×2 (09:48→21:08)
[2017-03-06] MEDS: hydroCHLOROthiazide 12.5 MG CAPSULE PO SCH (09:48)
[2017-03-06] MEDS: metFORMIN 500 MG TABLET PO SCH ×2 (09:48→16:36)
[2017-03-06] MEDS: CARVEDILOL 25 MG TABLET PO SCH ×2 (09:49→21:09)
[2017-03-06] MEDS: PANTOPRAZOLE 40 MG TABLET PO SCH (09:49)
[2017-03-06] MEDS: MAGNESIUM OXIDE 400 MG TABLET PO SCH ×2 (09:49→21:09)
[2017-03-06] MEDS: SUCRALFATE 1 GM TABLET PO SCH ×4 (09:49→21:08)
[2017-03-06] MEDS: METOCLOPRAMIDE 5 MG TABLET PO SCH (09:49)
[2017-03-06] MEDS: POTASSIUM CHLORIDE 20 MEQ TABLET PO SCH ×2 (09:49→21:08)
[2017-03-06] MEDS: ASPIRIN EC 81 MG TABLET PO SCH (09:49)
[2017-03-06] MEDS: NICOTINE 21 MG/24 HR PATCH TRANSDERM PRN (10:04)
[2017-03-06] MEDS ORDERED: NICOTINE 21 MG/24 HR PATCH TRANSDERM SCH (21:00)
[2017-03-06] MEDS: PRAVASTATIN 40 MG TABLET PO SCH (21:09)
[2017-03-07] MEDS: ALBUTEROL/IPRATROPIUM 3 ML NEB RESP TX SCH ×4 (01:49→19:15)
[2017-03-07] MEDS: LEVOFLOXACIN INJ 500 MG in PREMIX 1 EACH IV SCH (01:56)
[2017-03-07] MEDS: methylPREDNISolone SOD SUC 40 MG/1 ML VIAL IV SCH ×3 (01:56→17:03)
[2017-03-07 05:22] LABS: Basophils % 0.1 % (0.0-0.8); Hematocrit 39.8 VOL% (42.0-52.0); Hemoglobin 13.5 GM/DL (14.0-18.0); Immature Granulocytes % 0.8 %; Lymphocytes # 0.9 10*3/uL (1.4-4.0); Lymphocytes % 7.6 % (21.2-54.2); Mean Corpuscular HGB Conc 33.9 GM/DL (32-36); Mean Corpuscular Hemoglobin 28 PG (27-34); Mean Corpuscular Volume 82.4 FL (87-102); Mean Platelet Volume 11.7 FL (9.6-12.0); Monocytes # 0.6 10*3/uL (0.11-0.8); Monocytes % 4.8 % (1.7-12.7); Neutrophils # 10.7 10*3/uL (1.4-7.4); Neutrophils % 86.7 % (38.7-73.9); Platelet Count 198 T/CUMM (130-400); Red Blood Count 4.83 MC/CUMM (3.8-5.5); Red Cell Distribution Width 15.3 % (9.3-17.3); White Blood Count 12.3 T/CUMM (4-12)
[2017-03-07 05:49] LABS: Calcium 9.3 MG/DL (8.5-10.1); Osmolality,Calculated 283.4 MOS/KG (273-304); Potassium 3.7 MMOL/L (3.5-5.1)
[2017-03-07] MEDS: INSULIN LISPRO 100 UNIT/ML SUBCUT SCH ×4 (07:30→20:18)
[2017-03-07] MEDS: metFORMIN 500 MG TABLET PO SCH ×2 (08:51→17:02)
[2017-03-07] MEDS: hydroCHLOROthiazide 12.5 MG CAPSULE PO SCH (08:51)
[2017-03-07] MEDS: VALSARTAN 160 MG TABLET PO SCH (08:51)
[2017-03-07] MEDS: PANTOPRAZOLE 40 MG TABLET PO SCH (08:51)
[2017-03-07] MEDS: MAGNESIUM OXIDE 400 MG TABLET PO SCH ×2 (08:51→20:16)
[2017-03-07] MEDS: ASPIRIN EC 81 MG TABLET PO SCH (08:51)
[2017-03-07] MEDS: METOCLOPRAMIDE 5 MG TABLET PO SCH (08:51)
[2017-03-07] MEDS: SUCRALFATE 1 GM TABLET PO SCH ×4 (08:52→20:16)
[2017-03-07] MEDS: LISINOPRIL 20 MG TABLET PO SCH ×2 (08:52→20:15)
[2017-03-07] MEDS: CARVEDILOL 25 MG TABLET PO SCH ×2 (08:52→20:16)
[2017-03-07] MEDS: NICOTINE 21 MG/24 HR PATCH TRANSDERM PRN (08:53)
[2017-03-07] MEDS: POTASSIUM CHLORIDE 20 MEQ TABLET PO SCH ×2 (09:58→20:16)
[2017-03-07] MEDS: PRAVASTATIN 40 MG TABLET PO SCH (20:16)
[2017-03-08] MEDS: ALBUTEROL/IPRATROPIUM 3 ML NEB RESP TX SCH ×4 (01:12→19:14)
[2017-03-08] MEDS: methylPREDNISolone SOD SUC 40 MG/1 ML VIAL IV SCH ×3 (02:09→22:48)
[2017-03-08] MEDS: LEVOFLOXACIN INJ 500 MG in PREMIX 1 EACH IV SCH (02:12)
[2017-03-08 06:20] LABS: Basophils % 0.1 % (0.0-0.8); Hematocrit 42.3 VOL% (42.0-52.0); Hemoglobin 14.4 GM/DL (14.0-18.0); Immature Granulocytes % 0.4 %; Immature Granulocytes Absolute 0.04 #; Lymphocytes # 0.8 10*3/uL (1.4-4.0); Lymphocytes % 8.1 % (21.2-54.2); Mean Corpuscular Hemoglobin 28 PG (27-34); Mean Corpuscular Volume 81.5 FL (87-102); Monocytes # 0.4 10*3/uL (0.11-0.8); Monocytes % 4.4 % (1.7-12.7); Neutrophils # 8.3 10*3/uL (1.4-7.4); Platelet Count 201 T/CUMM (130-400); Red Blood Count 5.19 MC/CUMM (3.8-5.5); White Blood Count 9.6 T/CUMM (4-12)
[2017-03-08 06:47] LABS: Calcium 9.1 MG/DL (8.5-10.1); Osmolality,Calculated 281.7 MOS/KG (273-304); Potassium 3.7 MMOL/L (3.5-5.1)
[2017-03-08] MEDS ORDERED: PROMETHAZINE 25 MG/1 ML VIAL IM ONE (07:30)
[2017-03-08] MEDS ORDERED: MEPERIDINE 50 MG/1 ML VIAL IM ONE (07:30)
[2017-03-08] MEDS ORDERED: MIDAZOLAM 2 MG/2 ML VIAL IV ONE (08:00)
[2017-03-08] MEDS ORDERED: LIDOCAINE 2% 20 ML VIAL RESP TX ONE (08:00)
[2017-03-08] MEDS ORDERED: LIDOCAINE 1% 20 ML VIAL MISC INJ ONE (08:00)
[2017-03-08] MEDS ORDERED: MIDAZOLAM 2 MG/2 ML VIAL ONE (10:10)
[2017-03-08] MEDS: SUCRALFATE 1 GM TABLET PO SCH ×4 (10:56→22:45)
[2017-03-08] MEDS: INSULIN LISPRO 100 UNIT/ML SUBCUT SCH ×4 (10:57→22:46)
[2017-03-08] MEDS: VALSARTAN 160 MG TABLET PO SCH (11:40)
[2017-03-08] MEDS: hydroCHLOROthiazide 12.5 MG CAPSULE PO SCH (11:40)
[2017-03-08] MEDS: METOCLOPRAMIDE 5 MG TABLET PO SCH (11:41)
[2017-03-08] MEDS: metFORMIN 500 MG TABLET PO SCH ×2 (11:41→16:30)
[2017-03-08] MEDS: PANTOPRAZOLE 40 MG TABLET PO SCH (11:41)
[2017-03-08] MEDS: LISINOPRIL 20 MG TABLET PO SCH ×2 (11:41→22:44)
[2017-03-08] MEDS: POTASSIUM CHLORIDE 20 MEQ TABLET PO SCH ×2 (11:41→22:44)
[2017-03-08] MEDS: CARVEDILOL 25 MG TABLET PO SCH ×2 (11:42→22:44)
[2017-03-08] MEDS: ASPIRIN EC 81 MG TABLET PO SCH (11:42)
[2017-03-08] MEDS: MAGNESIUM OXIDE 400 MG TABLET PO SCH ×2 (11:42→22:44)
[2017-03-08] MEDS: NICOTINE 21 MG/24 HR PATCH TRANSDERM PRN (11:56)
[2017-03-08] MEDS: PRAVASTATIN 40 MG TABLET PO SCH (22:44)
[2017-03-09] MEDS: ALBUTEROL/IPRATROPIUM 3 ML NEB RESP TX SCH ×4 (00:27→19:05)
[2017-03-09] MEDS: LEVOFLOXACIN INJ 500 MG in PREMIX 1 EACH IV SCH (04:04)
[2017-03-09] MEDS: VALSARTAN 160 MG TABLET PO SCH (09:04)
[2017-03-09] MEDS: hydroCHLOROthiazide 12.5 MG CAPSULE PO SCH (09:04)
[2017-03-09] MEDS: methylPREDNISolone SOD SUC 40 MG/1 ML VIAL IV SCH ×2 (09:04→21:01)
[2017-03-09] MEDS: POTASSIUM CHLORIDE 20 MEQ TABLET PO SCH ×2 (09:05→20:59)
[2017-03-09] MEDS: MAGNESIUM OXIDE 400 MG TABLET PO SCH ×2 (09:05→20:59)
[2017-03-09] MEDS: SUCRALFATE 1 GM TABLET PO SCH ×4 (09:05→20:59)
[2017-03-09] MEDS: LISINOPRIL 20 MG TABLET PO SCH ×2 (09:05→20:59)
[2017-03-09] MEDS: metFORMIN 500 MG TABLET PO SCH ×2 (09:05→16:38)
[2017-03-09] MEDS: CLOPIDOGREL 75 MG TABLET PO SCH (09:05)
[2017-03-09] MEDS: ASPIRIN EC 81 MG TABLET PO SCH (09:05)
[2017-03-09] MEDS: INSULIN LISPRO 100 UNIT/ML SUBCUT SCH ×4 (09:06→21:03)
[2017-03-09] MEDS: PANTOPRAZOLE 40 MG TABLET PO SCH (09:06)
[2017-03-09] MEDS: METOCLOPRAMIDE 5 MG TABLET PO SCH (09:06)
[2017-03-09] MEDS: CARVEDILOL 25 MG TABLET PO SCH ×2 (09:06→20:59)
[2017-03-09] MEDS: PRAVASTATIN 40 MG TABLET PO SCH (20:59)
[2017-03-10] MEDS: ALBUTEROL/IPRATROPIUM 3 ML NEB RESP TX SCH ×4 (00:11→19:18)
[2017-03-10] MEDS: LEVOFLOXACIN INJ 500 MG in PREMIX 1 EACH IV SCH (02:56)
[2017-03-10] MEDS: INSULIN LISPRO 100 UNIT/ML SUBCUT SCH ×4 (07:46→20:32)
[2017-03-10] MEDS: CARVEDILOL 25 MG TABLET PO SCH ×2 (09:39→20:32)
[2017-03-10] MEDS: METOCLOPRAMIDE 5 MG TABLET PO SCH (09:40)
[2017-03-10] MEDS: VALSARTAN 160 MG TABLET PO SCH (09:40)
[2017-03-10] MEDS: metFORMIN 500 MG TABLET PO SCH ×2 (09:40→17:29)
[2017-03-10] MEDS: hydroCHLOROthiazide 12.5 MG CAPSULE PO SCH (09:40)
[2017-03-10] MEDS: LISINOPRIL 20 MG TABLET PO SCH ×2 (09:40→20:31)
[2017-03-10] MEDS: MAGNESIUM OXIDE 400 MG TABLET PO SCH ×2 (09:41→20:31)
[2017-03-10] MEDS: PANTOPRAZOLE 40 MG TABLET PO SCH (09:41)
[2017-03-10] MEDS: ASPIRIN EC 81 MG TABLET PO SCH (09:41)
[2017-03-10] MEDS: SUCRALFATE 1 GM TABLET PO SCH ×4 (09:41→20:32)
[2017-03-10] MEDS: CLOPIDOGREL 75 MG TABLET PO SCH (09:41)
[2017-03-10] MEDS: POTASSIUM CHLORIDE 20 MEQ TABLET PO SCH ×2 (09:42→20:32)
[2017-03-10] MEDS: methylPREDNISolone SOD SUC 40 MG/1 ML VIAL IV SCH ×2 (09:42→20:33)
[2017-03-10] MEDS: PRAVASTATIN 40 MG TABLET PO SCH (20:31)
[2017-03-11] MEDS: ALBUTEROL/IPRATROPIUM 3 ML NEB RESP TX SCH ×2 (00:55→07:17)
[2017-03-11] MEDS: LEVOFLOXACIN INJ 500 MG in PREMIX 1 EACH IV SCH (02:01)
[2017-03-11] MEDS: INSULIN LISPRO 100 UNIT/ML SUBCUT SCH (07:30)
[2017-03-11 08:35] VITALS: BP 140/62
[2017-03-11] MEDS: LISINOPRIL 20 MG TABLET PO SCH (08:54)
[2017-03-11] MEDS: PANTOPRAZOLE 40 MG TABLET PO SCH (08:54)
[2017-03-11] MEDS: SUCRALFATE 1 GM TABLET PO SCH (08:55)
[2017-03-11] MEDS: metFORMIN 500 MG TABLET PO SCH (08:55)
[2017-03-11] MEDS: VALSARTAN 160 MG TABLET PO SCH (08:56)
[2017-03-11] MEDS: hydroCHLOROthiazide 12.5 MG CAPSULE PO SCH (08:56)
[2017-03-11] MEDS: CLOPIDOGREL 75 MG TABLET PO SCH (08:56)
[2017-03-11] MEDS: METOCLOPRAMIDE 5 MG TABLET PO SCH (08:56)
[2017-03-11] MEDS: CARVEDILOL 25 MG TABLET PO SCH (08:56)
[2017-03-11] MEDS: NICOTINE 21 MG/24 HR PATCH TRANSDERM PRN (08:57)
[2017-03-11] MEDS: POTASSIUM CHLORIDE 20 MEQ TABLET PO SCH (08:57)
[2017-03-11] MEDS: ASPIRIN EC 81 MG TABLET PO SCH (08:57)
[2017-03-11] MEDS: MAGNESIUM OXIDE 400 MG TABLET PO SCH (08:57)
[2017-03-11] MEDS ORDERED: LEVOFLOXACIN 500 MG TABLET PO SCH (09:00)
[2017-03-11] MEDS ORDERED: predniSONE 20 MG TABLET PO SCH (09:00)
== END 2017-03-11 10:30 | disposition home or self-care (01) | DRG 190 ==
LOC: N.ED 22:31 → N.4E 03-05 01:09
PROVIDERS: ADMIT Internal Medicine; ATTEND Internal Medicine
PROC: BRONCHB (2017-03-08 08:50)

== ENCOUNTER 2018-07-04 11:57 | Inpatient (IN) ==
[2018-07-04] MEDS ORDERED: DEXTROSE 50% 25 GM/50 ML SYRINGE IV PRN (12:58)
[2018-07-04] MEDS ORDERED: GLUCAGON 1 MG VIAL IM PRN (12:58)
[2018-07-04] MEDS ORDERED: ACETAMINOPHEN 325 MG TABLET PO PRN (12:58)
[2018-07-04] MEDS ORDERED: ONDANSETRON 4 MG/2 ML VIAL IV PRN (12:58)
[2018-07-04] MEDS ORDERED: NON-FORMULARY MEDICATION (Umeclidinium Brm/Vilanterol Tr [Anoro Ellipta] 1 PUFF) INH PRN (13:01)
[2018-07-04] MEDS: methylPREDNISolone SOD SUC 40 MG/1 ML VIAL IV SCH (13:21)
[2018-07-04 14:12] LABS: Basophils # 0.1 10*3/uL (0.0-0.2); Basophils % 1.2 % (0.0-0.8); Eosinophils # 0.6 10*3/uL (0.0-0.87); Eosinophils % 12.9 % (0.00-10.9); Hematocrit 42.6 VOL% (42.0-52.0); Hemoglobin 13.4 GM/DL (14.0-18.0); Immature Granulocytes % 0.2 %; Immature Granulocytes Absolute 0.01 #; Lymphocytes # 1.4 10*3/uL (1.4-4.0); Lymphocytes % 29.1 % (21.2-54.2); Mean Corpuscular HGB Conc 31.5 GM/DL (32-36); Mean Corpuscular Hemoglobin 26 PG (27-34); Mean Corpuscular Volume 81.3 FL (87-102); Mean Platelet Volume 11.7 FL (9.6-12.0); Monocytes # 0.6 10*3/uL (0.11-0.8); Monocytes % 12.1 % (1.7-12.7); Neutrophils # 2.1 10*3/uL (1.4-7.4); Neutrophils % 44.5 % (38.7-73.9); Platelet Count 199 T/CUMM (130-400); Red Blood Count 5.24 MC/CUMM (3.8-5.5); White Blood Count 4.8 T/CUMM (4-12)
[2018-07-04 14:40] LABS: Alanine Aminotransferase 22 U/L (16-61); Albumin 2.8 G/DL (3.4-5.0); Alkaline Phosphatase 134 U/L (45-117); Aspartate Amino Transferase 16 U/L (0-37); Bilirubin,Total < 0.39 MG/DL (0.2-1.0); Blood Urea Nitrogen 11 MG/DL (7-18); Calcium 8.7 MG/DL (8.5-10.1); Glucose 144 MG/DL (74-106); Osmolality,Calculated 282.3 MOS/KG (273-304); Potassium 3.7 MMOL/L (3.5-5.1); Sodium 141 MMOL/L (136-145); Total Protein 7.3 G/DL (6.4-8.3)
[2018-07-04 14:42] LABS: Troponin I < 0.015 NG/ML (0.00-0.045)
[2018-07-04] MEDS: ALBUTEROL/IPRATROPIUM 3 ML NEB RESP TX SCH ×2 (15:10→20:00)
[2018-07-04] MEDS: LEVOFLOXACIN INJ 500 MG in PREMIX 1 EACH IV SCH (15:16)
[2018-07-04 15:54] LABS: Band Neutrophils 1 % (0-10); Eosinophils 19 % (0-10); Lymphocytes 25 % (20-55); Segmented Neutrophils 45 % (50-85); Total Cells Counted 100
[2018-07-04 15:56] LABS: Hypochromasia 1+; Microcytosis 1+; Ovalocytes Few; Polychromasia Slight
[2018-07-04 15:57] LABS: Helmet Cells Slight; Platelet Estimate Adequate
[2018-07-04] MEDS: INSULIN LISPRO 100 UNIT/ML SUBCUT SCH ×2 (17:10→23:02)
[2018-07-04] MEDS: SUCRALFATE 1 GM TABLET PO SCH ×2 (17:16→21:04)
[2018-07-04] MEDS: metFORMIN 500 MG TABLET PO SCH (17:16)
[2018-07-04] MEDS: METOCLOPRAMIDE 5 MG TABLET PO SCH ×2 (17:16→21:05)
[2018-07-04] MEDS: ASPIRIN EC 81 MG TABLET PO SCH (21:04)
[2018-07-04] MEDS: POTASSIUM CHLORIDE 20 MEQ TABLET PO SCH (21:04)
[2018-07-04] MEDS: hydrALAZINE 20 MG/1 ML VIAL IV PRN (21:05)
[2018-07-04] MEDS: SIMVASTATIN 20 MG TABLET PO SCH (21:05)
[2018-07-04] MEDS: DOCUSATE SODIUM 100 MG CAPSULE PO SCH (21:05)
[2018-07-04] MEDS: LISINOPRIL 20 MG TABLET PO SCH (21:05)
[2018-07-04] MEDS: MAGNESIUM OXIDE 400 MG TABLET PO SCH (21:05)
[2018-07-05] MEDS: ALBUTEROL/IPRATROPIUM 3 ML NEB RESP TX SCH ×6 (00:11→19:22)
[2018-07-05] MEDS: methylPREDNISolone SOD SUC 40 MG/1 ML VIAL IV SCH ×2 (01:57→13:41)
[2018-07-05 04:32] LABS: Basophils % 0.6 % (0.0-0.8); Eosinophils % 0.3 % (0.00-10.9); Hemoglobin 13.7 GM/DL (14.0-18.0); Immature Granulocytes % 0.6 %; Immature Granulocytes Absolute 0.02 #; Lymphocytes % 26.4 % (21.2-54.2); Mean Corpuscular HGB Conc 31.1 GM/DL (32-36); Mean Corpuscular Hemoglobin 25 PG (27-34); Mean Corpuscular Volume 80.7 FL (87-102); Mean Platelet Volume 11.8 FL (9.6-12.0); Monocytes # 0.2 10*3/uL (0.11-0.8); Monocytes % 6.3 % (1.7-12.7); Neutrophils # 2.4 10*3/uL (1.4-7.4); Neutrophils % 65.8 % (38.7-73.9); Platelet Count 198 T/CUMM (130-400); Red Blood Count 5.45 MC/CUMM (3.8-5.5); Red Cell Distribution Width 18.4 % (9.3-17.3); White Blood Count 3.6 T/CUMM (4-12)
[2018-07-05 04:53] LABS: Calcium 9.2 MG/DL (8.5-10.1); Osmolality,Calculated 280.3 MOS/KG (273-304); Potassium 4.1 MMOL/L (3.5-5.1)
[2018-07-05] MEDS: hydrALAZINE 20 MG/1 ML VIAL IV PRN ×3 (06:53→18:14)
[2018-07-05] MEDS: INSULIN LISPRO 100 UNIT/ML SUBCUT SCH ×4 (08:55→22:36)
[2018-07-05] MEDS: metFORMIN 500 MG TABLET PO SCH ×2 (09:39→18:14)
[2018-07-05] MEDS: DOCUSATE SODIUM 100 MG CAPSULE PO SCH ×3 (09:39→22:46)
[2018-07-05] MEDS: METOCLOPRAMIDE 5 MG TABLET PO SCH ×4 (09:39→22:39)
[2018-07-05] MEDS: LISINOPRIL 20 MG TABLET PO SCH ×2 (09:39→22:36)
[2018-07-05] MEDS: CLOPIDOGREL 75 MG TABLET PO SCH (09:39)
[2018-07-05] MEDS: POTASSIUM CHLORIDE 20 MEQ TABLET PO SCH ×2 (09:39→22:36)
[2018-07-05] MEDS: METOPROLOL TARTRATE 100 MG TABLET PO SCH (09:39)
[2018-07-05] MEDS: SUCRALFATE 1 GM TABLET PO SCH ×4 (09:39→22:36)
[2018-07-05] MEDS: MAGNESIUM OXIDE 400 MG TABLET PO SCH ×2 (09:39→22:35)
[2018-07-05] MEDS: GLIMEPIRIDE 2 MG TABLET PO SCH (09:39)
[2018-07-05] MEDS: PANTOPRAZOLE 40 MG TABLET PO SCH (09:41)
[2018-07-05] MEDS: LEVOFLOXACIN INJ 500 MG in PREMIX 1 EACH IV SCH (18:14)
[2018-07-05] MEDS ORDERED: IPRATROPIUM 500 MCG/2.5 ML NEB RESP TX SCH (19:00)
[2018-07-05] MEDS: ASPIRIN EC 81 MG TABLET PO SCH (22:35)
[2018-07-05] MEDS: METOPROLOL TARTRATE 5 MG/5 ML VIAL IV PRN (22:35)
[2018-07-05] MEDS: SIMVASTATIN 20 MG TABLET PO SCH (22:36)
[2018-07-05] MEDS: BUDESONIDE/FORMOTEROL 160-4.5 INHALER 6 GM INH SCH (22:39)
[2018-07-06] MEDS: ALBUTEROL/IPRATROPIUM 3 ML NEB RESP TX SCH ×7 (00:07→20:38)
[2018-07-06] MEDS: hydrALAZINE 20 MG/1 ML VIAL IV PRN ×3 (01:28→22:11)
[2018-07-06] MEDS: methylPREDNISolone SOD SUC 40 MG/1 ML VIAL IV SCH ×3 (01:30→22:12)
[2018-07-06] MEDS: DOCUSATE SODIUM 100 MG CAPSULE PO SCH ×2 (09:46→20:33)
[2018-07-06] MEDS: PANTOPRAZOLE 40 MG TABLET PO SCH (09:46)
[2018-07-06] MEDS: GLIMEPIRIDE 2 MG TABLET PO SCH (09:46)
[2018-07-06] MEDS: POTASSIUM CHLORIDE 20 MEQ TABLET PO SCH ×2 (09:46→20:33)
[2018-07-06] MEDS: LISINOPRIL 20 MG TABLET PO SCH ×2 (09:46→20:33)
[2018-07-06] MEDS: METOPROLOL TARTRATE 100 MG TABLET PO SCH (09:46)
[2018-07-06] MEDS: SUCRALFATE 1 GM TABLET PO SCH ×4 (09:46→20:33)
[2018-07-06] MEDS: MAGNESIUM OXIDE 400 MG TABLET PO SCH ×2 (09:46→20:33)
[2018-07-06] MEDS: CLOPIDOGREL 75 MG TABLET PO SCH (09:46)
[2018-07-06] MEDS: metFORMIN 500 MG TABLET PO SCH ×2 (09:46→16:49)
[2018-07-06] MEDS: METOCLOPRAMIDE 5 MG TABLET PO SCH ×4 (09:47→20:33)
[2018-07-06] MEDS: INSULIN LISPRO 100 UNIT/ML SUBCUT SCH ×4 (09:47→21:55)
[2018-07-06] MEDS: BUDESONIDE/FORMOTEROL 160-4.5 INHALER 6 GM INH SCH ×2 (09:47→20:33)
[2018-07-06] MEDS: LEVOFLOXACIN INJ 500 MG in PREMIX 1 EACH IV SCH (14:35)
[2018-07-06] MEDS: SIMVASTATIN 20 MG TABLET PO SCH (20:32)
[2018-07-06] MEDS: ASPIRIN EC 81 MG TABLET PO SCH (20:33)
[2018-07-07] MEDS: ALBUTEROL/IPRATROPIUM 3 ML NEB RESP TX SCH ×7 (00:30→23:23)
[2018-07-07] MEDS: methylPREDNISolone SOD SUC 40 MG/1 ML VIAL IV SCH ×3 (06:00→21:10)
[2018-07-07] MEDS: INSULIN LISPRO 100 UNIT/ML SUBCUT SCH ×4 (08:56→21:14)
[2018-07-07] MEDS: LISINOPRIL 20 MG TABLET PO SCH ×2 (08:57→21:09)
[2018-07-07] MEDS: METOCLOPRAMIDE 5 MG TABLET PO SCH ×4 (08:57→21:09)
[2018-07-07] MEDS: BUDESONIDE/FORMOTEROL 160-4.5 INHALER 6 GM INH SCH ×2 (08:58→21:10)
[2018-07-07] MEDS: metFORMIN 500 MG TABLET PO SCH ×2 (08:58→16:43)
[2018-07-07] MEDS: GLIMEPIRIDE 2 MG TABLET PO SCH (08:58)
[2018-07-07] MEDS: DOCUSATE SODIUM 100 MG CAPSULE PO SCH ×2 (08:58→21:09)
[2018-07-07] MEDS: POTASSIUM CHLORIDE 20 MEQ TABLET PO SCH ×2 (08:58→21:10)
[2018-07-07] MEDS: SUCRALFATE 1 GM TABLET PO SCH ×4 (08:58→21:08)
[2018-07-07] MEDS: METOPROLOL TARTRATE 100 MG TABLET PO SCH (08:58)
[2018-07-07] MEDS: MAGNESIUM OXIDE 400 MG TABLET PO SCH ×2 (08:58→21:09)
[2018-07-07] MEDS: CLOPIDOGREL 75 MG TABLET PO SCH (08:58)
[2018-07-07] MEDS: PANTOPRAZOLE 40 MG TABLET PO SCH (08:58)
[2018-07-07] MEDS: MONTELUKAST 10 MG TABLET PO SCH (15:03)
[2018-07-07] MEDS: LEVOFLOXACIN INJ 500 MG in PREMIX 1 EACH IV SCH (15:04)
[2018-07-07] MEDS: hydrALAZINE 25 MG TABLET PO SCH ×2 (16:42→21:10)
[2018-07-07] MEDS: hydrALAZINE 20 MG/1 ML VIAL IV PRN (18:39)
[2018-07-07] MEDS: SIMVASTATIN 20 MG TABLET PO SCH (21:08)
[2018-07-07] MEDS: ASPIRIN EC 81 MG TABLET PO SCH (21:08)
[2018-07-08] MEDS: ALBUTEROL/IPRATROPIUM 3 ML NEB RESP TX SCH ×6 (03:19→22:24)
[2018-07-08] MEDS: methylPREDNISolone SOD SUC 40 MG/1 ML VIAL IV SCH ×3 (05:42→22:15)
[2018-07-08] MEDS: INSULIN LISPRO 100 UNIT/ML SUBCUT SCH ×5 (08:45→22:16)
[2018-07-08] MEDS: METOPROLOL TARTRATE 100 MG TABLET PO SCH (09:50)
[2018-07-08] MEDS: METOCLOPRAMIDE 5 MG TABLET PO SCH ×4 (09:50→20:48)
[2018-07-08] MEDS: MONTELUKAST 10 MG TABLET PO SCH (09:50)
[2018-07-08] MEDS: guaiFENesin 200 MG/10 ML UDCUP PO PRN (09:50)
[2018-07-08] MEDS: hydrALAZINE 25 MG TABLET PO SCH (09:50)
[2018-07-08] MEDS: metFORMIN 500 MG TABLET PO SCH ×2 (09:50→18:22)
[2018-07-08] MEDS: DOCUSATE SODIUM 100 MG CAPSULE PO SCH ×2 (09:50→20:48)
[2018-07-08] MEDS: MAGNESIUM OXIDE 400 MG TABLET PO SCH ×2 (09:50→20:48)
[2018-07-08] MEDS: SUCRALFATE 1 GM TABLET PO SCH ×4 (09:51→20:49)
[2018-07-08] MEDS: PANTOPRAZOLE 40 MG TABLET PO SCH (09:51)
[2018-07-08] MEDS: CLOPIDOGREL 75 MG TABLET PO SCH (09:51)
[2018-07-08] MEDS: POTASSIUM CHLORIDE 20 MEQ TABLET PO SCH ×2 (09:51→20:49)
[2018-07-08] MEDS: LISINOPRIL 20 MG TABLET PO SCH ×2 (09:52→20:49)
[2018-07-08] MEDS: GLIMEPIRIDE 2 MG TABLET PO SCH (09:52)
[2018-07-08] MEDS: BUDESONIDE/FORMOTEROL 160-4.5 INHALER 6 GM INH SCH ×2 (09:52→20:50)
[2018-07-08] MEDS: DORNASE ALFA 2.5 MG/2.5 ML VIAL RESP TX SCH ×2 (11:05→19:25)
[2018-07-08] MEDS: LEVOFLOXACIN INJ 500 MG in PREMIX 1 EACH IV SCH (14:27)
[2018-07-08] MEDS: METOPROLOL TARTRATE 5 MG/5 ML VIAL IV PRN (18:24)
[2018-07-08] MEDS: SIMVASTATIN 20 MG TABLET PO SCH (20:48)
[2018-07-08] MEDS: ASPIRIN EC 81 MG TABLET PO SCH (20:49)
[2018-07-09] MEDS: guaiFENesin 200 MG/10 ML UDCUP PO PRN (00:01)
[2018-07-09] MEDS: hydrALAZINE 20 MG/1 ML VIAL IV PRN ×2 (00:01→12:10)
[2018-07-09] MEDS: ALBUTEROL/IPRATROPIUM 3 ML NEB RESP TX SCH ×5 (03:09→20:08)
[2018-07-09 05:30] LABS: Basophils % 0.1 % (0.0-0.8); Eosinophils % 0.1 % (0.00-10.9); Hematocrit 43.5 VOL% (42.0-52.0); Hemoglobin 13.5 GM/DL (14.0-18.0); Immature Granulocytes % 1.5 %; Immature Granulocytes Absolute 0.16 #; Lymphocytes % 9.2 % (21.2-54.2); Mean Corpuscular Hemoglobin 26 PG (27-34); Mean Corpuscular Volume 82.2 FL (87-102); Monocytes # 0.3 10*3/uL (0.11-0.8); Monocytes % 2.9 % (1.7-12.7); Neutrophils # 9.5 10*3/uL (1.4-7.4); Neutrophils % 86.2 % (38.7-73.9); Platelet Count 172 T/CUMM (130-400); Red Blood Count 5.29 MC/CUMM (3.8-5.5); Red Cell Distribution Width 19.2 % (9.3-17.3)
[2018-07-09 05:47] LABS: Calcium 9.4 MG/DL (8.5-10.1); Osmolality,Calculated 284.7 MOS/KG (273-304); Potassium 4.8 MMOL/L (3.5-5.1)
[2018-07-09] MEDS: methylPREDNISolone SOD SUC 40 MG/1 ML VIAL IV SCH ×3 (06:20→22:06)
[2018-07-09 06:25] LABS: Hypochromasia 1+; Microcytosis 1+; Ovalocytes Slight; Platelet Estimate Adequate
[2018-07-09] MEDS: DORNASE ALFA 2.5 MG/2.5 ML VIAL RESP TX SCH ×2 (07:02→20:08)
[2018-07-09] MEDS: METOCLOPRAMIDE 5 MG TABLET PO SCH ×4 (09:07→22:07)
[2018-07-09] MEDS: CLOPIDOGREL 75 MG TABLET PO SCH (09:07)
[2018-07-09] MEDS: metFORMIN 500 MG TABLET PO SCH ×2 (09:07→16:41)
[2018-07-09] MEDS: MONTELUKAST 10 MG TABLET PO SCH (09:08)
[2018-07-09] MEDS: GLIMEPIRIDE 2 MG TABLET PO SCH (09:08)
[2018-07-09] MEDS: POTASSIUM CHLORIDE 20 MEQ TABLET PO SCH ×2 (09:08→22:07)
[2018-07-09] MEDS: INSULIN LISPRO 100 UNIT/ML SUBCUT SCH ×4 (09:08→22:07)
[2018-07-09] MEDS: MAGNESIUM OXIDE 400 MG TABLET PO SCH ×2 (09:08→22:07)
[2018-07-09] MEDS: METOPROLOL TARTRATE 100 MG TABLET PO SCH (09:08)
[2018-07-09] MEDS: PANTOPRAZOLE 40 MG TABLET PO SCH (09:08)
[2018-07-09] MEDS: LISINOPRIL 20 MG TABLET PO SCH ×2 (09:09→22:07)
[2018-07-09] MEDS: DOCUSATE SODIUM 100 MG CAPSULE PO SCH ×2 (09:09→22:07)
[2018-07-09] MEDS: BUDESONIDE/FORMOTEROL 160-4.5 INHALER 6 GM INH SCH ×2 (09:09→22:07)
[2018-07-09] MEDS: SUCRALFATE 1 GM TABLET PO SCH ×4 (09:09→22:07)
[2018-07-09] MEDS: LEVOFLOXACIN INJ 500 MG in PREMIX 1 EACH IV SCH (14:01)
[2018-07-09] MEDS: ASPIRIN EC 81 MG TABLET PO SCH (22:07)
[2018-07-09] MEDS: SIMVASTATIN 20 MG TABLET PO SCH (22:07)
[2018-07-10] MEDS: ALBUTEROL/IPRATROPIUM 3 ML NEB RESP TX SCH ×6 (03:37→20:07)
[2018-07-10 04:30] LABS: Basophils % 0.1 % (0.0-0.8); Hematocrit 40.5 VOL% (42.0-52.0); Hemoglobin 12.8 GM/DL (14.0-18.0); Immature Granulocytes % 1.6 %; Immature Granulocytes Absolute 0.17 #; Lymphocytes # 0.9 10*3/uL (1.4-4.0); Lymphocytes % 8.4 % (21.2-54.2); Mean Corpuscular HGB Conc 31.6 GM/DL (32-36); Mean Corpuscular Hemoglobin 26 PG (27-34); Mean Corpuscular Volume 81.2 FL (87-102); Mean Platelet Volume 12.3 FL (9.6-12.0); Monocytes # 0.4 10*3/uL (0.11-0.8); Monocytes % 3.6 % (1.7-12.7); Neutrophils # 9.4 10*3/uL (1.4-7.4); Neutrophils % 86.3 % (38.7-73.9); Platelet Count 193 T/CUMM (130-400); Red Blood Count 4.99 MC/CUMM (3.8-5.5); Red Cell Distribution Width 18.8 % (9.3-17.3); White Blood Count 10.9 T/CUMM (4-12)
[2018-07-10] MEDS: methylPREDNISolone SOD SUC 40 MG/1 ML VIAL IV SCH ×3 (06:40→21:48)
[2018-07-10] MEDS: DORNASE ALFA 2.5 MG/2.5 ML VIAL RESP TX SCH ×2 (07:53→20:07)
[2018-07-10] MEDS: INSULIN LISPRO 100 UNIT/ML SUBCUT SCH ×4 (08:51→21:50)
[2018-07-10] MEDS: METOCLOPRAMIDE 5 MG TABLET PO SCH ×4 (08:52→21:47)
[2018-07-10] MEDS: MONTELUKAST 10 MG TABLET PO SCH (08:52)
[2018-07-10] MEDS: CLOPIDOGREL 75 MG TABLET PO SCH (08:52)
[2018-07-10] MEDS: POTASSIUM CHLORIDE 20 MEQ TABLET PO SCH ×2 (08:52→21:48)
[2018-07-10] MEDS: PANTOPRAZOLE 40 MG TABLET PO SCH (08:52)
[2018-07-10] MEDS: METOPROLOL TARTRATE 100 MG TABLET PO SCH (08:52)
[2018-07-10] MEDS: GLIMEPIRIDE 2 MG TABLET PO SCH (08:52)
[2018-07-10] MEDS: DOCUSATE SODIUM 100 MG CAPSULE PO SCH ×2 (08:52→21:47)
[2018-07-10] MEDS: MAGNESIUM OXIDE 400 MG TABLET PO SCH ×2 (08:52→21:47)
[2018-07-10] MEDS: metFORMIN 500 MG TABLET PO SCH ×2 (08:52→16:05)
[2018-07-10] MEDS: BUDESONIDE/FORMOTEROL 160-4.5 INHALER 6 GM INH SCH ×2 (08:53→21:50)
[2018-07-10] MEDS: LISINOPRIL 20 MG TABLET PO SCH ×2 (08:53→21:47)
[2018-07-10] MEDS: SUCRALFATE 1 GM TABLET PO SCH ×4 (08:58→21:47)
[2018-07-10] MEDS: LEVOFLOXACIN INJ 500 MG in PREMIX 1 EACH IV SCH (14:32)
[2018-07-10] MEDS: hydrALAZINE 20 MG/1 ML VIAL IV PRN (16:12)
[2018-07-10] MEDS: ASPIRIN EC 81 MG TABLET PO SCH (21:47)
[2018-07-10] MEDS: SIMVASTATIN 20 MG TABLET PO SCH (21:48)
[2018-07-11] MEDS: ALBUTEROL/IPRATROPIUM 3 ML NEB RESP TX SCH ×7 (00:09→19:36)
[2018-07-11 04:18] LABS: Basophils % 0.3 % (0.0-0.8); Hematocrit 40.3 VOL% (42.0-52.0); Hemoglobin 12.7 GM/DL (14.0-18.0); Immature Granulocytes % 2.2 %; Immature Granulocytes Absolute 0.23 #; Lymphocytes # 0.7 10*3/uL (1.4-4.0); Lymphocytes % 6.7 % (21.2-54.2); Mean Corpuscular HGB Conc 31.5 GM/DL (32-36); Mean Corpuscular Hemoglobin 26 PG (27-34); Mean Corpuscular Volume 80.9 FL (87-102); Mean Platelet Volume 12.2 FL (9.6-12.0); Monocytes # 0.4 10*3/uL (0.11-0.8); Monocytes % 3.6 % (1.7-12.7); Neutrophils # 9.3 10*3/uL (1.4-7.4); Neutrophils % 87.2 % (38.7-73.9); Platelet Count 196 T/CUMM (130-400); Red Blood Count 4.98 MC/CUMM (3.8-5.5); Red Cell Distribution Width 18.8 % (9.3-17.3); White Blood Count 10.6 T/CUMM (4-12)
[2018-07-11] MEDS ORDERED: MEPERIDINE 50 MG/1 ML VIAL IM ONE (06:30)
[2018-07-11] MEDS ORDERED: GLYCOPYRROLATE 0.4 MG/2 ML VIAL IM ONE (06:30)
[2018-07-11] MEDS ORDERED: PROMETHAZINE 25 MG/1 ML VIAL IM ONE (06:30)
[2018-07-11] MEDS: methylPREDNISolone SOD SUC 40 MG/1 ML VIAL IV SCH ×3 (06:30→21:00)
[2018-07-11] MEDS ORDERED: LIDOCAINE 1% 20 ML VIAL MISC INJ ONE (07:00)
[2018-07-11] MEDS ORDERED: MIDAZOLAM 10 MG/2 ML VIAL IV ONE (07:00)
[2018-07-11] MEDS ORDERED: LIDOCAINE 2% 20 ML VIAL RESP TX ONE (07:00)
[2018-07-11] MEDS ORDERED: LIDOCAINE 2% VISCOUS 100 ML BOTTLE SWISH/SPIT ONE (07:00)
[2018-07-11] MEDS: DORNASE ALFA 2.5 MG/2.5 ML VIAL RESP TX SCH ×2 (07:25→19:41)
[2018-07-11] MEDS ORDERED: MIDAZOLAM 2 MG/2 ML VIAL ONE (09:11)
[2018-07-11] MEDS: METOPROLOL TARTRATE 100 MG TABLET PO SCH (09:45)
[2018-07-11] MEDS: METOCLOPRAMIDE 5 MG TABLET PO SCH ×4 (09:45→21:00)
[2018-07-11] MEDS: PANTOPRAZOLE 40 MG TABLET PO SCH (09:45)
[2018-07-11] MEDS: CLOPIDOGREL 75 MG TABLET PO SCH (09:45)
[2018-07-11] MEDS: GLIMEPIRIDE 2 MG TABLET PO SCH (09:45)
[2018-07-11] MEDS: POTASSIUM CHLORIDE 20 MEQ TABLET PO SCH ×2 (09:45→20:59)
[2018-07-11] MEDS: LISINOPRIL 20 MG TABLET PO SCH ×2 (09:45→21:00)
[2018-07-11] MEDS: MAGNESIUM OXIDE 400 MG TABLET PO SCH ×2 (09:45→20:59)
[2018-07-11] MEDS: metFORMIN 500 MG TABLET PO SCH ×2 (09:45→16:17)
[2018-07-11] MEDS: INSULIN LISPRO 100 UNIT/ML SUBCUT SCH ×4 (09:46→20:58)
[2018-07-11] MEDS: SUCRALFATE 1 GM TABLET PO SCH ×4 (09:46→21:00)
[2018-07-11] MEDS: MONTELUKAST 10 MG TABLET PO SCH (09:46)
[2018-07-11] MEDS: DOCUSATE SODIUM 100 MG CAPSULE PO SCH ×2 (09:46→20:59)
[2018-07-11] MEDS: BUDESONIDE/FORMOTEROL 160-4.5 INHALER 6 GM INH SCH ×2 (10:06→21:00)
[2018-07-11] MEDS: METOPROLOL TARTRATE 5 MG/5 ML VIAL IV PRN (11:58)
[2018-07-11] MEDS: LEVOFLOXACIN INJ 500 MG in PREMIX 1 EACH IV SCH (16:17)
[2018-07-11] MEDS: SIMVASTATIN 20 MG TABLET PO SCH (20:59)
[2018-07-11] MEDS: ASPIRIN EC 81 MG TABLET PO SCH (21:00)
[2018-07-12] MEDS: ALBUTEROL/IPRATROPIUM 3 ML NEB RESP TX SCH ×6 (00:24→19:55)
[2018-07-12] MEDS: methylPREDNISolone SOD SUC 40 MG/1 ML VIAL IV SCH ×2 (05:55→17:42)
[2018-07-12] MEDS: DORNASE ALFA 2.5 MG/2.5 ML VIAL RESP TX SCH ×2 (07:45→19:55)
[2018-07-12] MEDS: INSULIN LISPRO 100 UNIT/ML SUBCUT SCH ×4 (09:01→21:11)
[2018-07-12] MEDS: METOCLOPRAMIDE 5 MG TABLET PO SCH ×4 (09:26→22:06)
[2018-07-12] MEDS: metFORMIN 500 MG TABLET PO SCH ×2 (09:26→16:32)
[2018-07-12] MEDS: SUCRALFATE 1 GM TABLET PO SCH ×4 (09:26→22:06)
[2018-07-12] MEDS: GLIMEPIRIDE 2 MG TABLET PO SCH (09:26)
[2018-07-12] MEDS: BUDESONIDE/FORMOTEROL 160-4.5 INHALER 6 GM INH SCH ×2 (09:27→22:07)
[2018-07-12] MEDS: MAGNESIUM OXIDE 400 MG TABLET PO SCH ×2 (09:27→22:06)
[2018-07-12] MEDS: DOCUSATE SODIUM 100 MG CAPSULE PO SCH ×2 (09:27→22:06)
[2018-07-12] MEDS: POTASSIUM CHLORIDE 20 MEQ TABLET PO SCH ×2 (09:27→22:07)
[2018-07-12] MEDS: LISINOPRIL 20 MG TABLET PO SCH ×2 (09:27→22:06)
[2018-07-12] MEDS: PANTOPRAZOLE 40 MG TABLET PO SCH (09:27)
[2018-07-12] MEDS: METOPROLOL TARTRATE 100 MG TABLET PO SCH (09:27)
[2018-07-12] MEDS: MONTELUKAST 10 MG TABLET PO SCH (09:27)
[2018-07-12] MEDS: CLOPIDOGREL 75 MG TABLET PO SCH (09:27)
[2018-07-12] MEDS: ASPIRIN EC 81 MG TABLET PO SCH (22:06)
[2018-07-12] MEDS: SIMVASTATIN 20 MG TABLET PO SCH (22:07)
[2018-07-13] MEDS: ALBUTEROL/IPRATROPIUM 3 ML NEB RESP TX SCH ×7 (00:13→23:32)
[2018-07-13 04:51] LABS: Basophils % 0.1 % (0.0-0.8); Hematocrit 39.6 VOL% (42.0-52.0); Hemoglobin 12.4 GM/DL (14.0-18.0); Immature Granulocytes Absolute 0.25 #; Lymphocytes # 1.6 10*3/uL (1.4-4.0); Lymphocytes % 12.9 % (21.2-54.2); Mean Corpuscular HGB Conc 31.3 GM/DL (32-36); Mean Corpuscular Hemoglobin 26 PG (27-34); Mean Corpuscular Volume 81.3 FL (87-102); Mean Platelet Volume 12.3 FL (9.6-12.0); Neutrophils # 9.6 10*3/uL (1.4-7.4); Platelet Count 179 T/CUMM (130-400); Red Blood Count 4.87 MC/CUMM (3.8-5.5); Red Cell Distribution Width 19.3 % (9.3-17.3); White Blood Count 12.4 T/CUMM (4-12)
[2018-07-13 05:09] LABS: Calcium 9.1 MG/DL (8.5-10.1); Osmolality,Calculated 291.1 MOS/KG (273-304); Potassium 4.7 MMOL/L (3.5-5.1)
[2018-07-13] MEDS: methylPREDNISolone SOD SUC 40 MG/1 ML VIAL IV SCH ×2 (05:51→17:09)
[2018-07-13] MEDS: DORNASE ALFA 2.5 MG/2.5 ML VIAL RESP TX SCH ×2 (07:12→19:35)
[2018-07-13] MEDS: OLMESARTAN 20 MG TABLET PO SCH (09:17)
[2018-07-13] MEDS: ENOXAPARIN 40 MG/0.4 ML SYRINGE SUBCUT SCH (09:18)
[2018-07-13] MEDS: GLIMEPIRIDE 2 MG TABLET PO SCH (09:19)
[2018-07-13] MEDS: MONTELUKAST 10 MG TABLET PO SCH (09:19)
[2018-07-13] MEDS: DOCUSATE SODIUM 100 MG CAPSULE PO SCH ×2 (09:19→22:11)
[2018-07-13] MEDS: POTASSIUM CHLORIDE 20 MEQ TABLET PO SCH ×2 (09:19→22:10)
[2018-07-13] MEDS: cloNIDine 0.1 MG TABLET PO PRN (09:19)
[2018-07-13] MEDS: METOPROLOL TARTRATE 100 MG TABLET PO SCH (09:20)
[2018-07-13] MEDS: INSULIN LISPRO 100 UNIT/ML SUBCUT SCH ×4 (09:20→22:08)
[2018-07-13] MEDS: METOCLOPRAMIDE 5 MG TABLET PO SCH ×4 (09:20→22:09)
[2018-07-13] MEDS: metFORMIN 500 MG TABLET PO SCH ×2 (09:20→16:30)
[2018-07-13] MEDS: MAGNESIUM OXIDE 400 MG TABLET PO SCH ×2 (09:20→22:10)
[2018-07-13] MEDS: SUCRALFATE 1 GM TABLET PO SCH ×4 (09:20→22:10)
[2018-07-13] MEDS: CLOPIDOGREL 75 MG TABLET PO SCH (09:21)
[2018-07-13] MEDS: BUDESONIDE/FORMOTEROL 160-4.5 INHALER 6 GM INH SCH ×2 (09:21→22:11)
[2018-07-13] MEDS: PANTOPRAZOLE 40 MG TABLET PO SCH (09:21)
[2018-07-13] MEDS: THEOPHYLLINE ER 300 MG TABLET PO SCH (22:09)
[2018-07-13] MEDS: SIMVASTATIN 20 MG TABLET PO SCH (22:10)
[2018-07-13] MEDS: ASPIRIN EC 81 MG TABLET PO SCH (22:11)
[2018-07-14] MEDS: cloNIDine 0.1 MG TABLET PO PRN (00:16)
[2018-07-14] MEDS ORDERED: ASPIRIN CHEW 81 MG TABLET PO ONE (01:01)
[2018-07-14] MEDS ORDERED: NITROGLYCERIN SL 0.4 MG TABLET SL PRN (01:01)
[2018-07-14] MEDS ORDERED: MORPHINE 4 MG/1 ML VIAL ONE (01:03)
[2018-07-14] MEDS ORDERED: NITROGLYCERIN SL 0.4 MG TABLET SL ONE (01:03)
[2018-07-14] MEDS ORDERED: ASPIRIN 325 MG TABLET ONE (01:06)
[2018-07-14] MEDS: MORPHINE 4 MG/1 ML VIAL IV PRN (01:07)
[2018-07-14] MEDS ORDERED: dilTIAZem Drip 125 MG/125 ML PREMIX IV SCH (01:30)
[2018-07-14] MEDS: ALBUTEROL/IPRATROPIUM 3 ML NEB RESP TX SCH ×6 (03:19→22:41)
[2018-07-14] MEDS: methylPREDNISolone SOD SUC 40 MG/1 ML VIAL IV SCH ×2 (06:26→17:05)
[2018-07-14] MEDS: DORNASE ALFA 2.5 MG/2.5 ML VIAL RESP TX SCH ×2 (07:35→19:55)
[2018-07-14 08:56] LABS: Thyroid Stimulating Hormone 0.084 uIU/ml (0.358-3.74)
[2018-07-14] MEDS: ASCORBIC ACID 500 MG TABLET PO SCH ×2 (09:28→21:35)
[2018-07-14] MEDS: metFORMIN 500 MG TABLET PO SCH ×2 (09:29→16:48)
[2018-07-14] MEDS: ENOXAPARIN 40 MG/0.4 ML SYRINGE SUBCUT SCH (09:29)
[2018-07-14] MEDS: METOPROLOL TARTRATE 100 MG TABLET PO SCH (09:29)
[2018-07-14] MEDS: POTASSIUM CHLORIDE 20 MEQ TABLET PO SCH ×2 (09:29→21:35)
[2018-07-14] MEDS: PANTOPRAZOLE 40 MG TABLET PO SCH (09:30)
[2018-07-14] MEDS: GLIMEPIRIDE 2 MG TABLET PO SCH (09:30)
[2018-07-14] MEDS ORDERED: DILTIAZEM CD 180 MG CAPSULE PO SCH (09:30)
[2018-07-14] MEDS: METOCLOPRAMIDE 5 MG TABLET PO SCH ×4 (09:30→21:35)
[2018-07-14] MEDS: MONTELUKAST 10 MG TABLET PO SCH (09:30)
[2018-07-14] MEDS: OLMESARTAN 20 MG TABLET PO SCH (09:30)
[2018-07-14] MEDS: INSULIN LISPRO 100 UNIT/ML SUBCUT SCH ×4 (09:30→21:35)
[2018-07-14] MEDS: BUDESONIDE/FORMOTEROL 160-4.5 INHALER 6 GM INH SCH ×2 (09:31→21:37)
[2018-07-14] MEDS: SUCRALFATE 1 GM TABLET PO SCH ×4 (09:31→21:35)
[2018-07-14] MEDS: CLOPIDOGREL 75 MG TABLET PO SCH (09:31)
[2018-07-14] MEDS: DOCUSATE SODIUM 100 MG CAPSULE PO SCH ×2 (09:31→21:35)
[2018-07-14] MEDS: MAGNESIUM OXIDE 400 MG TABLET PO SCH ×2 (09:31→21:34)
[2018-07-14] MEDS: THEOPHYLLINE ER 300 MG TABLET PO SCH ×2 (09:31→16:49)
[2018-07-14 15:28] LABS: Troponin I 0.102 NG/ML (0.00-0.045)
[2018-07-14] MEDS: ASPIRIN EC 81 MG TABLET PO SCH (21:34)
[2018-07-14] MEDS: SIMVASTATIN 20 MG TABLET PO SCH (21:35)
[2018-07-14] MEDS: APIXABAN 5 MG TABLET PO SCH (21:43)
[2018-07-15] MEDS: ALBUTEROL/IPRATROPIUM 3 ML NEB RESP TX SCH ×6 (02:17→23:27)
[2018-07-15 05:13] LABS: Basophils % 0.2 % (0.0-0.8); Hematocrit 38.3 VOL% (42.0-52.0); Hemoglobin 12.2 GM/DL (14.0-18.0); Immature Granulocytes % 2.4 %; Immature Granulocytes Absolute 0.33 #; Lymphocytes # 0.9 10*3/uL (1.4-4.0); Lymphocytes % 6.7 % (21.2-54.2); Mean Corpuscular HGB Conc 31.9 GM/DL (32-36); Mean Corpuscular Hemoglobin 26 PG (27-34); Mean Corpuscular Volume 80.5 FL (87-102); Mean Platelet Volume 12.7 FL (9.6-12.0); Monocytes # 0.7 10*3/uL (0.11-0.8); Monocytes % 5.1 % (1.7-12.7); Neutrophils # 11.9 10*3/uL (1.4-7.4); Neutrophils % 85.6 % (38.7-73.9); Platelet Count 193 T/CUMM (130-400); Red Blood Count 4.76 MC/CUMM (3.8-5.5); White Blood Count 13.9 T/CUMM (4-12)
[2018-07-15 05:33] LABS: Osmolality,Calculated 283.5 MOS/KG (273-304); Potassium 4.5 MMOL/L (3.5-5.1)
[2018-07-15 05:37] LABS: Osmolality,Calculated 284.5 MOS/KG (273-304); Potassium 4.5 MMOL/L (3.5-5.1)
[2018-07-15 05:38] LABS: Risk Ratio 1.58; VLDL CHOLESTEROL 12.8 MG/DL
[2018-07-15] MEDS: methylPREDNISolone SOD SUC 40 MG/1 ML VIAL IV SCH ×2 (05:47→17:01)
[2018-07-15] MEDS: DORNASE ALFA 2.5 MG/2.5 ML VIAL RESP TX SCH ×2 (07:29→19:11)
[2018-07-15 08:32] LABS: Basophils % 0.2 % (0.0-0.8); Hematocrit 39.8 VOL% (42.0-52.0); Hemoglobin 12.7 GM/DL (14.0-18.0); Lymphocytes # 1.2 10*3/uL (1.4-4.0); Mean Corpuscular HGB Conc 31.9 GM/DL (32-36); Mean Corpuscular Hemoglobin 26 PG (27-34); Mean Corpuscular Volume 80.7 FL (87-102); Mean Platelet Volume 11.2 FL (9.6-12.0); Monocytes % 6.5 % (1.7-12.7); Neutrophils # 12.6 10*3/uL (1.4-7.4); Neutrophils % 83.3 % (38.7-73.9); Platelet Count 180 T/CUMM (130-400); Red Blood Count 4.93 MC/CUMM (3.8-5.5); Red Cell Distribution Width 19.4 % (9.3-17.3); White Blood Count 15.2 T/CUMM (4-12)
[2018-07-15 08:53] LABS: Osmolality,Calculated 284.5 MOS/KG (273-304); Potassium 4.6 MMOL/L (3.5-5.1)
[2018-07-15] MEDS: OLMESARTAN 20 MG TABLET PO SCH (09:25)
[2018-07-15] MEDS: GLIMEPIRIDE 2 MG TABLET PO SCH (09:25)
[2018-07-15] MEDS: METOCLOPRAMIDE 5 MG TABLET PO SCH ×4 (09:26→21:36)
[2018-07-15] MEDS: SUCRALFATE 1 GM TABLET PO SCH ×4 (09:26→21:31)
[2018-07-15] MEDS: METOPROLOL TARTRATE 100 MG TABLET PO SCH (09:26)
[2018-07-15] MEDS: MONTELUKAST 10 MG TABLET PO SCH (09:26)
[2018-07-15] MEDS: PANTOPRAZOLE 40 MG TABLET PO SCH (09:26)
[2018-07-15] MEDS: THEOPHYLLINE ER 300 MG TABLET PO SCH ×2 (09:26→17:00)
[2018-07-15] MEDS: APIXABAN 5 MG TABLET PO SCH ×2 (09:26→21:32)
[2018-07-15] MEDS: POTASSIUM CHLORIDE 20 MEQ TABLET PO SCH ×2 (09:26→21:36)
[2018-07-15] MEDS: BUDESONIDE/FORMOTEROL 160-4.5 INHALER 6 GM INH SCH ×2 (09:26→21:43)
[2018-07-15] MEDS: DILTIAZEM CD 240 MG CAPSULE PO SCH (09:26)
[2018-07-15] MEDS: ASCORBIC ACID 500 MG TABLET PO SCH ×2 (09:26→21:35)
[2018-07-15] MEDS: MAGNESIUM OXIDE 400 MG TABLET PO SCH ×2 (09:26→21:36)
[2018-07-15] MEDS: DOCUSATE SODIUM 100 MG CAPSULE PO SCH ×2 (09:27→21:31)
[2018-07-15] MEDS: metFORMIN 500 MG TABLET PO SCH (09:33)
[2018-07-15] MEDS: INSULIN LISPRO 100 UNIT/ML SUBCUT SCH ×4 (09:33→21:33)
[2018-07-15] MEDS: ROSUVASTATIN 20 MG TABLET PO SCH (21:31)
[2018-07-15] MEDS: ASPIRIN EC 81 MG TABLET PO SCH (21:31)
[2018-07-16] MEDS: ALBUTEROL/IPRATROPIUM 3 ML NEB RESP TX SCH ×6 (03:08→23:58)
[2018-07-16 04:23] LABS: Basophils % 0.2 % (0.0-0.8); Hematocrit 38.3 VOL% (42.0-52.0); Hemoglobin 12.1 GM/DL (14.0-18.0); Immature Granulocytes % 2.1 %; Immature Granulocytes Absolute 0.26 #; Lymphocytes # 0.6 10*3/uL (1.4-4.0); Lymphocytes % 4.5 % (21.2-54.2); Mean Corpuscular HGB Conc 31.6 GM/DL (32-36); Mean Corpuscular Hemoglobin 25 PG (27-34); Mean Corpuscular Volume 80.5 FL (87-102); Mean Platelet Volume 12.7 FL (9.6-12.0); Monocytes # 0.4 10*3/uL (0.11-0.8); Monocytes % 3.2 % (1.7-12.7); Neutrophils # 11.1 10*3/uL (1.4-7.4); Platelet Count 177 T/CUMM (130-400); Red Blood Count 4.76 MC/CUMM (3.8-5.5); Red Cell Distribution Width 19.4 % (9.3-17.3); White Blood Count 12.3 T/CUMM (4-12)
[2018-07-16 04:52] LABS: Calcium 8.7 MG/DL (8.5-10.1); Osmolality,Calculated 291.7 MOS/KG (273-304); Potassium 4.6 MMOL/L (3.5-5.1)
[2018-07-16 05:45] LABS: Lymphocytes 1 % (20-55); Segmented Neutrophils 96 % (50-85); Total Cells Counted 100
[2018-07-16 05:46] LABS: Anisocytosis 1+; Ovalocytes Few
[2018-07-16 05:47] LABS: Platelet Estimate Adequate
[2018-07-16] MEDS: methylPREDNISolone SOD SUC 40 MG/1 ML VIAL IV SCH ×2 (06:18→17:10)
[2018-07-16] MEDS: DORNASE ALFA 2.5 MG/2.5 ML VIAL RESP TX SCH ×2 (07:30→20:40)
[2018-07-16] MEDS: OLMESARTAN 20 MG TABLET PO SCH (09:51)
[2018-07-16] MEDS: INSULIN LISPRO 100 UNIT/ML SUBCUT SCH ×4 (09:51→22:43)
[2018-07-16] MEDS: METOCLOPRAMIDE 5 MG TABLET PO SCH ×4 (09:52→22:43)
[2018-07-16] MEDS: DOCUSATE SODIUM 100 MG CAPSULE PO SCH ×2 (09:52→23:23)
[2018-07-16] MEDS: ASCORBIC ACID 500 MG TABLET PO SCH ×2 (09:53→23:23)
[2018-07-16] MEDS: GLIMEPIRIDE 2 MG TABLET PO SCH (09:53)
[2018-07-16] MEDS: MAGNESIUM OXIDE 400 MG TABLET PO SCH ×2 (09:53→22:42)
[2018-07-16] MEDS: SUCRALFATE 1 GM TABLET PO SCH ×4 (09:53→22:42)
[2018-07-16] MEDS: MONTELUKAST 10 MG TABLET PO SCH (09:54)
[2018-07-16] MEDS: THEOPHYLLINE ER 300 MG TABLET PO SCH ×2 (09:54→16:46)
[2018-07-16] MEDS: METOPROLOL TARTRATE 100 MG TABLET PO SCH (09:54)
[2018-07-16] MEDS: PANTOPRAZOLE 40 MG TABLET PO SCH (09:54)
[2018-07-16] MEDS: POTASSIUM CHLORIDE 20 MEQ TABLET PO SCH ×2 (09:54→22:42)
[2018-07-16] MEDS: DILTIAZEM CD 240 MG CAPSULE PO SCH (09:57)
[2018-07-16] MEDS: APIXABAN 5 MG TABLET PO SCH ×2 (09:58→22:42)
[2018-07-16] MEDS: BUDESONIDE/FORMOTEROL 160-4.5 INHALER 6 GM INH SCH ×2 (09:59→22:48)
[2018-07-16] MEDS: ROSUVASTATIN 20 MG TABLET PO SCH (22:42)
[2018-07-16] MEDS: ASPIRIN EC 81 MG TABLET PO SCH (22:42)
[2018-07-17] MEDS: ALBUTEROL/IPRATROPIUM 3 ML NEB RESP TX SCH ×6 (03:37→23:17)
[2018-07-17 05:03] LABS: Basophils % 0.1 % (0.0-0.8); Hemoglobin 12.1 GM/DL (14.0-18.0); Immature Granulocytes % 1.7 %; Immature Granulocytes Absolute 0.25 #; Lymphocytes # 0.5 10*3/uL (1.4-4.0); Lymphocytes % 3.6 % (21.2-54.2); Mean Corpuscular HGB Conc 32.7 GM/DL (32-36); Mean Corpuscular Hemoglobin 26 PG (27-34); Mean Corpuscular Volume 79.9 FL (87-102); Mean Platelet Volume 12.8 FL (9.6-12.0); Monocytes # 0.6 10*3/uL (0.11-0.8); NRBC # 0.02 10*3/uL; Neutrophils % 90.6 % (38.7-73.9); Platelet Count 167 T/CUMM (130-400); Red Blood Count 4.63 MC/CUMM (3.8-5.5); Red Cell Distribution Width 18.7 % (9.3-17.3); White Blood Count 14.4 T/CUMM (4-12)
[2018-07-17 05:25] LABS: Calcium 8.7 MG/DL (8.5-10.1); Osmolality,Calculated 286.7 MOS/KG (273-304); Potassium 4.5 MMOL/L (3.5-5.1)
[2018-07-17] MEDS: methylPREDNISolone SOD SUC 40 MG/1 ML VIAL IV SCH (05:56)
[2018-07-17 07:05] LABS: Lymphocytes 3 % (20-55); Segmented Neutrophils 91 % (50-85); Total Cells Counted 100
[2018-07-17 07:08] LABS: Polychromasia Few
[2018-07-17 07:09] LABS: Giant Platelets Few
[2018-07-17 07:10] LABS: Hypochromasia Slight; Platelet Estimate Normal
[2018-07-17 07:11] LABS: Ovalocytes 1+
[2018-07-17] MEDS: DORNASE ALFA 2.5 MG/2.5 ML VIAL RESP TX SCH ×2 (07:26→19:56)
[2018-07-17] MEDS ORDERED: hydrALAZINE 25 MG TABLET ONE (08:22)
[2018-07-17] MEDS: GLIMEPIRIDE 2 MG TABLET PO SCH (09:45)
[2018-07-17] MEDS: MONTELUKAST 10 MG TABLET PO SCH (09:46)
[2018-07-17] MEDS: THEOPHYLLINE ER 300 MG TABLET PO SCH ×2 (09:46→17:22)
[2018-07-17] MEDS: OLMESARTAN 20 MG TABLET PO SCH (09:46)
[2018-07-17] MEDS: METOPROLOL TARTRATE 100 MG TABLET PO SCH (09:46)
[2018-07-17] MEDS: DILTIAZEM CD 240 MG CAPSULE PO SCH (09:47)
[2018-07-17] MEDS: SUCRALFATE 1 GM TABLET PO SCH ×4 (09:47→22:05)
[2018-07-17] MEDS: POTASSIUM CHLORIDE 20 MEQ TABLET PO SCH ×2 (09:47→22:04)
[2018-07-17] MEDS: DOCUSATE SODIUM 100 MG CAPSULE PO SCH ×2 (09:47→22:05)
[2018-07-17] MEDS: PANTOPRAZOLE 40 MG TABLET PO SCH (09:47)
[2018-07-17] MEDS: MAGNESIUM OXIDE 400 MG TABLET PO SCH ×2 (09:47→22:04)
[2018-07-17] MEDS: ASCORBIC ACID 500 MG TABLET PO SCH ×2 (09:47→22:04)
[2018-07-17] MEDS: METOCLOPRAMIDE 5 MG TABLET PO SCH ×4 (09:47→22:05)
[2018-07-17] MEDS: APIXABAN 5 MG TABLET PO SCH ×2 (09:48→22:05)
[2018-07-17] MEDS: INSULIN LISPRO 100 UNIT/ML SUBCUT SCH ×4 (09:49→22:05)
[2018-07-17] MEDS ORDERED: FUROSEMIDE 40 MG/4 ML VIAL IV ONE (09:50)
[2018-07-17] MEDS: BUDESONIDE/FORMOTEROL 160-4.5 INHALER 6 GM INH SCH ×2 (09:53→22:06)
[2018-07-17] MEDS: predniSONE 20 MG TABLET PO SCH (17:22)
[2018-07-17] MEDS: ASPIRIN EC 81 MG TABLET PO SCH (22:04)
[2018-07-17] MEDS: ROSUVASTATIN 20 MG TABLET PO SCH (22:05)
[2018-07-17] MEDS: guaiFENesin 200 MG/10 ML UDCUP PO PRN (22:09)
[2018-07-18] MEDS: ALBUTEROL/IPRATROPIUM 3 ML NEB RESP TX SCH ×6 (04:25→23:38)
[2018-07-18 05:07] LABS: Basophils % 0.1 % (0.0-0.8); Hematocrit 37.1 VOL% (42.0-52.0); Hemoglobin 11.8 GM/DL (14.0-18.0); Immature Granulocytes % 1.8 %; Immature Granulocytes Absolute 0.27 #; Lymphocytes # 0.5 10*3/uL (1.4-4.0); Lymphocytes % 3.2 % (21.2-54.2); Mean Corpuscular HGB Conc 31.8 GM/DL (32-36); Mean Corpuscular Hemoglobin 26 PG (27-34); Mean Corpuscular Volume 80.1 FL (87-102); Mean Platelet Volume 12.5 FL (9.6-12.0); Monocytes # 1.1 10*3/uL (0.11-0.8); Monocytes % 6.8 % (1.7-12.7); Neutrophils # 13.5 10*3/uL (1.4-7.4); Neutrophils % 88.1 % (38.7-73.9); Platelet Count 160 T/CUMM (130-400); Red Blood Count 4.63 MC/CUMM (3.8-5.5); Red Cell Distribution Width 19.4 % (9.3-17.3); White Blood Count 15.4 T/CUMM (4-12)
[2018-07-18 05:32] LABS: Calcium 8.8 MG/DL (8.5-10.1); Osmolality,Calculated 292.5 MOS/KG (273-304); Potassium 4.4 MMOL/L (3.5-5.1)
[2018-07-18 05:35] LABS: Band Neutrophils 1 % (0-10); Lymphocytes 2 % (20-55); Nucleated Red Blood Cells 1 (0-5); Segmented Neutrophils 94 % (50-85); Total Cells Counted 100
[2018-07-18 05:36] LABS: Anisocytosis 1+; Hypochromasia Slight; Platelet Estimate Adequate; Target Cells Few
[2018-07-18] MEDS: DORNASE ALFA 2.5 MG/2.5 ML VIAL RESP TX SCH ×2 (07:30→19:03)
[2018-07-18 08:27] LABS: Calcium 8.8 MG/DL (8.5-10.1); Osmolality,Calculated 290.7 MOS/KG (273-304); Potassium 4.4 MMOL/L (3.5-5.1)
[2018-07-18] MEDS ORDERED: methylPREDNISolone SOD SUC 40 MG/1 ML VIAL IV ONE (09:17)
[2018-07-18] MEDS ORDERED: ALBUTEROL/IPRATROPIUM 3 ML NEB RESP TX ONE ×2 (09:22→09:30)
[2018-07-18] MEDS: MORPHINE 4 MG/1 ML VIAL IV PRN (09:34)
[2018-07-18] MEDS: MONTELUKAST 10 MG TABLET PO SCH (10:10)
[2018-07-18] MEDS: INSULIN LISPRO 100 UNIT/ML SUBCUT SCH ×4 (10:10→21:04)
[2018-07-18] MEDS: OLMESARTAN 20 MG TABLET PO SCH (10:10)
[2018-07-18] MEDS: ASCORBIC ACID 500 MG TABLET PO SCH ×2 (10:11→21:03)
[2018-07-18] MEDS: APIXABAN 5 MG TABLET PO SCH ×2 (10:11→21:03)
[2018-07-18] MEDS: predniSONE 20 MG TABLET PO SCH (10:12)
[2018-07-18] MEDS: METOCLOPRAMIDE 5 MG TABLET PO SCH ×4 (10:12→21:03)
[2018-07-18] MEDS: GLIMEPIRIDE 2 MG TABLET PO SCH (10:12)
[2018-07-18] MEDS: DILTIAZEM CD 240 MG CAPSULE PO SCH (10:12)
[2018-07-18] MEDS: SUCRALFATE 1 GM TABLET PO SCH ×4 (10:12→21:03)
[2018-07-18] MEDS: PANTOPRAZOLE 40 MG TABLET PO SCH (10:13)
[2018-07-18] MEDS: THEOPHYLLINE ER 300 MG TABLET PO SCH ×2 (10:13→17:14)
[2018-07-18] MEDS: POTASSIUM CHLORIDE 20 MEQ TABLET PO SCH ×2 (10:13→21:03)
[2018-07-18] MEDS: MAGNESIUM OXIDE 400 MG TABLET PO SCH ×2 (10:13→21:04)
[2018-07-18] MEDS: DOCUSATE SODIUM 100 MG CAPSULE PO SCH ×2 (10:13→21:09)
[2018-07-18] MEDS: METOPROLOL TARTRATE 100 MG TABLET PO SCH (10:13)
[2018-07-18] MEDS: BUDESONIDE/FORMOTEROL 160-4.5 INHALER 6 GM INH SCH ×2 (10:25→21:04)
[2018-07-18 10:32] LABS: Basophils % 0.1 % (0.0-0.8); Hematocrit 40.5 VOL% (42.0-52.0); Hemoglobin 13.2 GM/DL (14.0-18.0); Immature Granulocytes % 1.1 %; Immature Granulocytes Absolute 0.28 #; Lymphocytes # 0.5 10*3/uL (1.4-4.0); Mean Corpuscular HGB Conc 32.6 GM/DL (32-36); Mean Corpuscular Hemoglobin 26 PG (27-34); Mean Corpuscular Volume 79.4 FL (87-102); Monocytes # 1.3 10*3/uL (0.11-0.8); Monocytes % 5.1 % (1.7-12.7); NRBC # 0.03 10*3/uL; Neutrophils # 22.8 10*3/uL (1.4-7.4); Neutrophils % 91.7 % (38.7-73.9); Platelet Count 163 T/CUMM (130-400); Red Cell Distribution Width 19.8 % (9.3-17.3)
[2018-07-18 10:37] LABS: White Blood Count 24.9 T/CUMM (4-12)
[2018-07-18 10:56] LABS: Calcium 8.6 MG/DL (8.5-10.1); Osmolality,Calculated 292.7 MOS/KG (273-304); Potassium 4.2 MMOL/L (3.5-5.1)
[2018-07-18 11:06] LABS: Troponin I 0.041 NG/ML (0.00-0.045)
[2018-07-18 11:39] LABS: Hypochromasia 1+; Lymphocytes 5 % (20-55); Ovalocytes Slight; Segmented Neutrophils 90 % (50-85); Total Cells Counted 100
[2018-07-18 11:40] LABS: Microcytosis 1+
[2018-07-18 11:41] LABS: Platelet Estimate Adequate
[2018-07-18] MEDS: LEVOFLOXACIN INJ 500 MG in PREMIX 1 EACH IV SCH (13:43)
[2018-07-18] MEDS: guaiFENesin 200 MG/10 ML UDCUP PO PRN (17:20)
[2018-07-18] MEDS: ROSUVASTATIN 20 MG TABLET PO SCH (21:03)
[2018-07-18] MEDS: ASPIRIN EC 81 MG TABLET PO SCH (21:04)
[2018-07-19] MEDS: ALBUTEROL/IPRATROPIUM 3 ML NEB RESP TX SCH ×6 (03:42→23:20)
[2018-07-19 05:08] LABS: Basophils % 0.1 % (0.0-0.8); Hematocrit 35.1 VOL% (42.0-52.0); Hemoglobin 11.3 GM/DL (14.0-18.0); Immature Granulocytes Absolute 0.29 #; Lymphocytes # 0.5 10*3/uL (1.4-4.0); Lymphocytes % 1.6 % (21.2-54.2); Mean Corpuscular HGB Conc 32.2 GM/DL (32-36); Mean Corpuscular Hemoglobin 26 PG (27-34); Mean Platelet Volume 12.8 FL (9.6-12.0); Monocytes # 1.8 10*3/uL (0.11-0.8); Monocytes % 5.9 % (1.7-12.7); Neutrophils % 91.4 % (38.7-73.9); Platelet Count 135 T/CUMM (130-400); Red Blood Count 4.39 MC/CUMM (3.8-5.5); Red Cell Distribution Width 19.6 % (9.3-17.3); White Blood Count 29.6 T/CUMM (4-12)
[2018-07-19 05:35] LABS: Calcium 8.6 MG/DL (8.5-10.1); Osmolality,Calculated 292.8 MOS/KG (273-304); Potassium 4.3 MMOL/L (3.5-5.1)
[2018-07-19 05:40] LABS: Band Neutrophils 2 % (0-10); Lymphocytes 2 % (20-55); Platelet Estimate Decreased; Segmented Neutrophils 93 % (50-85); Total Cells Counted 100
[2018-07-19] MEDS: DORNASE ALFA 2.5 MG/2.5 ML VIAL RESP TX SCH ×2 (07:26→19:36)
[2018-07-19] MEDS: INSULIN LISPRO 100 UNIT/ML SUBCUT SCH ×4 (08:01→21:04)
[2018-07-19] MEDS ORDERED: FUROSEMIDE 40 MG/4 ML VIAL IV ONE (08:49)
[2018-07-19] MEDS: MONTELUKAST 10 MG TABLET PO SCH (09:15)
[2018-07-19] MEDS: OLMESARTAN 20 MG TABLET PO SCH (09:15)
[2018-07-19] MEDS: guaiFENesin 200 MG/10 ML UDCUP PO PRN ×2 (09:15→21:04)
[2018-07-19] MEDS: DILTIAZEM CD 240 MG CAPSULE PO SCH (09:15)
[2018-07-19] MEDS: APIXABAN 5 MG TABLET PO SCH ×2 (09:15→21:04)
[2018-07-19] MEDS: MAGNESIUM OXIDE 400 MG TABLET PO SCH ×2 (09:16→21:04)
[2018-07-19] MEDS: SUCRALFATE 1 GM TABLET PO SCH ×4 (09:16→21:04)
[2018-07-19] MEDS: predniSONE 20 MG TABLET PO SCH (09:16)
[2018-07-19] MEDS: ASCORBIC ACID 500 MG TABLET PO SCH ×2 (09:16→21:04)
[2018-07-19] MEDS: PANTOPRAZOLE 40 MG TABLET PO SCH (09:17)
[2018-07-19] MEDS: BUDESONIDE/FORMOTEROL 160-4.5 INHALER 6 GM INH SCH ×2 (09:17→21:07)
[2018-07-19] MEDS: METOPROLOL TARTRATE 100 MG TABLET PO SCH (09:17)
[2018-07-19] MEDS: DOCUSATE SODIUM 100 MG CAPSULE PO SCH ×2 (09:17→21:04)
[2018-07-19] MEDS: METOCLOPRAMIDE 5 MG TABLET PO SCH ×4 (09:17→21:04)
[2018-07-19] MEDS: POTASSIUM CHLORIDE 20 MEQ TABLET PO SCH ×2 (09:17→21:04)
[2018-07-19] MEDS: THEOPHYLLINE ER 300 MG TABLET PO SCH ×2 (09:17→17:20)
[2018-07-19] MEDS: GLIMEPIRIDE 2 MG TABLET PO SCH (09:24)
[2018-07-19] MEDS: LEVOFLOXACIN INJ 500 MG in PREMIX 1 EACH IV SCH (13:12)
[2018-07-19] MEDS: ROSUVASTATIN 20 MG TABLET PO SCH (21:04)
[2018-07-19] MEDS: ASPIRIN EC 81 MG TABLET PO SCH (21:04)
[2018-07-20] MEDS: ALBUTEROL/IPRATROPIUM 3 ML NEB RESP TX SCH ×5 (03:27→19:14)
[2018-07-20 05:28] LABS: Basophils % 0.1 % (0.0-0.8); Eosinophils % 0.1 % (0.00-10.9); Hematocrit 34.5 VOL% (42.0-52.0); Hemoglobin 10.9 GM/DL (14.0-18.0); Immature Granulocytes % 0.9 %; Immature Granulocytes Absolute 0.17 #; Lymphocytes # 0.7 10*3/uL (1.4-4.0); Lymphocytes % 3.4 % (21.2-54.2); Mean Corpuscular HGB Conc 31.6 GM/DL (32-36); Mean Corpuscular Hemoglobin 26 PG (27-34); Mean Corpuscular Volume 81.8 FL (87-102); Monocytes # 1.1 10*3/uL (0.11-0.8); Monocytes % 5.5 % (1.7-12.7); Neutrophils # 17.7 10*3/uL (1.4-7.4); Platelet Count 115 T/CUMM (130-400); Red Blood Count 4.22 MC/CUMM (3.8-5.5); Red Cell Distribution Width 19.8 % (9.3-17.3); White Blood Count 19.6 T/CUMM (4-12)
[2018-07-20 05:59] LABS: Calcium 8.7 MG/DL (8.5-10.1); Osmolality,Calculated 291.7 MOS/KG (273-304); Potassium 4.4 MMOL/L (3.5-5.1)
[2018-07-20 06:13] LABS: Band Neutrophils 1 % (0-10); Hypochromasia 1+; Lymphocytes 4 % (20-55); Ovalocytes Slight; Platelet Estimate Decreased; Segmented Neutrophils 93 % (50-85); Total Cells Counted 100
[2018-07-20 06:14] LABS: Microcytosis Slight
[2018-07-20 06:49] LABS: Calcium 8.7 MG/DL (8.5-10.1); Osmolality,Calculated 289.8 MOS/KG (273-304); Potassium 4.2 MMOL/L (3.5-5.1)
[2018-07-20] MEDS: DORNASE ALFA 2.5 MG/2.5 ML VIAL RESP TX SCH ×2 (07:20→19:27)
[2018-07-20] MEDS ORDERED: FUROSEMIDE 40 MG/4 ML VIAL IV ONE (08:30)
[2018-07-20] MEDS: ASCORBIC ACID 500 MG TABLET PO SCH ×2 (08:44→20:57)
[2018-07-20] MEDS: METOPROLOL TARTRATE 100 MG TABLET PO SCH (08:44)
[2018-07-20] MEDS: predniSONE 20 MG TABLET PO SCH (08:44)
[2018-07-20] MEDS: PANTOPRAZOLE 40 MG TABLET PO SCH (08:44)
[2018-07-20] MEDS: SUCRALFATE 1 GM TABLET PO SCH ×4 (08:44→20:57)
[2018-07-20] MEDS: MONTELUKAST 10 MG TABLET PO SCH (08:44)
[2018-07-20] MEDS: DOCUSATE SODIUM 100 MG CAPSULE PO SCH ×2 (08:44→20:57)
[2018-07-20] MEDS: APIXABAN 5 MG TABLET PO SCH ×2 (08:44→20:57)
[2018-07-20] MEDS: MAGNESIUM OXIDE 400 MG TABLET PO SCH ×2 (08:44→20:57)
[2018-07-20] MEDS: OLMESARTAN 20 MG TABLET PO SCH (08:45)
[2018-07-20] MEDS: GLIMEPIRIDE 4 MG TABLET PO SCH (08:45)
[2018-07-20] MEDS: THEOPHYLLINE ER 300 MG TABLET PO SCH ×2 (08:45→16:55)
[2018-07-20] MEDS: POTASSIUM CHLORIDE 20 MEQ TABLET PO SCH ×2 (08:45→20:57)
[2018-07-20] MEDS: DILTIAZEM CD 240 MG CAPSULE PO SCH (08:45)
[2018-07-20] MEDS: INSULIN LISPRO 100 UNIT/ML SUBCUT SCH ×4 (08:45→20:57)
[2018-07-20] MEDS: METOCLOPRAMIDE 5 MG TABLET PO SCH ×4 (08:45→20:57)
[2018-07-20] MEDS: BUDESONIDE/FORMOTEROL 160-4.5 INHALER 6 GM INH SCH ×2 (08:53→20:57)
[2018-07-20] MEDS: LEVOFLOXACIN INJ 500 MG in PREMIX 1 EACH IV SCH (12:17)
[2018-07-20] MEDS: ROSUVASTATIN 20 MG TABLET PO SCH (20:57)
[2018-07-20] MEDS: ASPIRIN EC 81 MG TABLET PO SCH (20:57)
[2018-07-21] MEDS: ALBUTEROL/IPRATROPIUM 3 ML NEB RESP TX SCH ×7 (00:02→23:33)
[2018-07-21 04:47] LABS: Basophils % 0.1 % (0.0-0.8); Eosinophils % 0.1 % (0.00-10.9); Hemoglobin 10.6 GM/DL (14.0-18.0); Immature Granulocytes % 0.7 %; Lymphocytes # 0.7 10*3/uL (1.4-4.0); Lymphocytes % 4.5 % (21.2-54.2); Mean Corpuscular HGB Conc 32.1 GM/DL (32-36); Mean Corpuscular Hemoglobin 26 PG (27-34); Mean Corpuscular Volume 80.7 FL (87-102); Mean Platelet Volume 13.1 FL (9.6-12.0); Monocytes # 0.9 10*3/uL (0.11-0.8); Neutrophils # 12.8 10*3/uL (1.4-7.4); Neutrophils % 88.6 % (38.7-73.9); Platelet Count 126 T/CUMM (130-400); Red Blood Count 4.09 MC/CUMM (3.8-5.5); Red Cell Distribution Width 19.2 % (9.3-17.3); White Blood Count 14.4 T/CUMM (4-12)
[2018-07-21 05:16] LABS: Calcium 8.8 MG/DL (8.5-10.1); Osmolality,Calculated 296.5 MOS/KG (273-304); Potassium 4.1 MMOL/L (3.5-5.1)
[2018-07-21 05:26] LABS: Band Neutrophils 5 % (0-10); Lymphocytes 9 % (20-55); Platelet Estimate Decreased; Polychromasia Slight; Segmented Neutrophils 85 % (50-85); Total Cells Counted 100
[2018-07-21] MEDS: DORNASE ALFA 2.5 MG/2.5 ML VIAL RESP TX SCH ×2 (07:15→19:54)
[2018-07-21] MEDS ORDERED: BISACODYL 5 MG TABLET PO ONE (08:04)
[2018-07-21] MEDS ORDERED: FUROSEMIDE 40 MG/4 ML VIAL IV ONE (08:10)
[2018-07-21] MEDS: PANTOPRAZOLE 40 MG TABLET PO SCH (09:13)
[2018-07-21] MEDS: GLIMEPIRIDE 4 MG TABLET PO SCH (09:13)
[2018-07-21] MEDS: POTASSIUM CHLORIDE 20 MEQ TABLET PO SCH ×2 (09:13→21:26)
[2018-07-21] MEDS: METOPROLOL TARTRATE 100 MG TABLET PO SCH (09:13)
[2018-07-21] MEDS: DOCUSATE SODIUM 100 MG CAPSULE PO SCH ×2 (09:13→21:26)
[2018-07-21] MEDS: MAGNESIUM OXIDE 400 MG TABLET PO SCH ×2 (09:13→21:25)
[2018-07-21] MEDS: DILTIAZEM CD 240 MG CAPSULE PO SCH (09:13)
[2018-07-21] MEDS: METOCLOPRAMIDE 5 MG TABLET PO SCH ×4 (09:14→21:26)
[2018-07-21] MEDS: THEOPHYLLINE ER 300 MG TABLET PO SCH ×2 (09:14→16:41)
[2018-07-21] MEDS: ASCORBIC ACID 500 MG TABLET PO SCH ×2 (09:14→21:26)
[2018-07-21] MEDS: MONTELUKAST 10 MG TABLET PO SCH (09:14)
[2018-07-21] MEDS: SUCRALFATE 1 GM TABLET PO SCH ×4 (09:14→21:26)
[2018-07-21] MEDS: predniSONE 20 MG TABLET PO SCH (09:14)
[2018-07-21] MEDS: OLMESARTAN 20 MG TABLET PO SCH (09:15)
[2018-07-21] MEDS: INSULIN LISPRO 100 UNIT/ML SUBCUT SCH ×5 (09:19→23:41)
[2018-07-21] MEDS: BUDESONIDE/FORMOTEROL 160-4.5 INHALER 6 GM INH SCH ×2 (09:25→21:27)
[2018-07-21 11:54] LABS: Hematocrit 34.6 VOL% (42.0-52.0); Hemoglobin 10.8 GM/DL (14.0-18.0)
[2018-07-21] MEDS: LEVOFLOXACIN INJ 500 MG in PREMIX 1 EACH IV SCH (12:27)
[2018-07-21 13:58] LABS: % Iron Saturation 15.8 % (18-50)
[2018-07-21] MEDS: ASPIRIN EC 81 MG TABLET PO SCH (21:25)
[2018-07-21] MEDS: ROSUVASTATIN 20 MG TABLET PO SCH (21:26)
[2018-07-22] MEDS: ALBUTEROL/IPRATROPIUM 3 ML NEB RESP TX SCH ×3 (03:47→10:26)
[2018-07-22 04:20] LABS: Eosinophils % 0.2 % (0.00-10.9); Hematocrit 32.7 VOL% (42.0-52.0); Hemoglobin 10.5 GM/DL (14.0-18.0); Immature Granulocytes % 0.7 %; Immature Granulocytes Absolute 0.08 #; Lymphocytes # 0.8 10*3/uL (1.4-4.0); Lymphocytes % 6.2 % (21.2-54.2); Mean Corpuscular HGB Conc 32.1 GM/DL (32-36); Mean Corpuscular Hemoglobin 26 PG (27-34); Mean Corpuscular Volume 80.1 FL (87-102); Monocytes # 0.9 10*3/uL (0.11-0.8); Monocytes % 7.3 % (1.7-12.7); Neutrophils # 10.5 10*3/uL (1.4-7.4); Neutrophils % 85.6 % (38.7-73.9); Platelet Count 138 T/CUMM (130-400); Red Blood Count 4.08 MC/CUMM (3.8-5.5); Red Cell Distribution Width 19.1 % (9.3-17.3); White Blood Count 12.3 T/CUMM (4-12)
[2018-07-22 04:22] LABS: Basophils % 0.1 % (0.0-0.8); Eosinophils % 0.2 % (0.00-10.9); Hematocrit 32.9 VOL% (42.0-52.0); Hemoglobin 10.5 GM/DL (14.0-18.0); Immature Granulocytes % 0.5 %; Immature Granulocytes Absolute 0.06 #; Lymphocytes # 0.8 10*3/uL (1.4-4.0); Lymphocytes % 6.7 % (21.2-54.2); Mean Corpuscular HGB Conc 31.9 GM/DL (32-36); Mean Corpuscular Hemoglobin 26 PG (27-34); Mean Corpuscular Volume 80.6 FL (87-102); Mean Platelet Volume 12.4 FL (9.6-12.0); Monocytes # 0.9 10*3/uL (0.11-0.8); Monocytes % 7.5 % (1.7-12.7); Neutrophils # 10.2 10*3/uL (1.4-7.4); Platelet Count 132 T/CUMM (130-400); Red Blood Count 4.08 MC/CUMM (3.8-5.5); Red Cell Distribution Width 19.3 % (9.3-17.3)
[2018-07-22 05:01] LABS: Hypochromasia Slight; Platelet Estimate Decreased; Polychromasia Few
[2018-07-22 05:02] LABS: Platelet Estimate Decreased; Polychromasia Few
[2018-07-22 05:26] LABS: Calcium 9.1 MG/DL (8.5-10.1); Osmolality,Calculated 289.5 MOS/KG (273-304); Potassium 3.8 MMOL/L (3.5-5.1)
[2018-07-22] MEDS: DORNASE ALFA 2.5 MG/2.5 ML VIAL RESP TX SCH (07:08)
[2018-07-22 07:44] VITALS: BP 167/73
[2018-07-22 07:47] LABS: Sedimentation Rate-Westergren 90 MM/HR (0-20)
[2018-07-22] MEDS: INSULIN LISPRO 100 UNIT/ML SUBCUT SCH (09:42)
[2018-07-22] MEDS: THEOPHYLLINE ER 300 MG TABLET PO SCH (09:43)
[2018-07-22] MEDS: MONTELUKAST 10 MG TABLET PO SCH (09:43)
[2018-07-22] MEDS: PANTOPRAZOLE 40 MG TABLET PO SCH (09:43)
[2018-07-22] MEDS: METOCLOPRAMIDE 5 MG TABLET PO SCH (09:43)
[2018-07-22] MEDS: POTASSIUM CHLORIDE 20 MEQ TABLET PO SCH (09:43)
[2018-07-22] MEDS: ASCORBIC ACID 500 MG TABLET PO SCH (09:43)
[2018-07-22] MEDS: OLMESARTAN 20 MG TABLET PO SCH (09:44)
[2018-07-22] MEDS: predniSONE 20 MG TABLET PO SCH (09:45)
[2018-07-22] MEDS: DILTIAZEM CD 240 MG CAPSULE PO SCH (09:45)
[2018-07-22] MEDS: MAGNESIUM OXIDE 400 MG TABLET PO SCH (09:45)
[2018-07-22] MEDS: DOCUSATE SODIUM 100 MG CAPSULE PO SCH (09:45)
[2018-07-22] MEDS: SUCRALFATE 1 GM TABLET PO SCH (09:45)
[2018-07-22] MEDS: GLIMEPIRIDE 4 MG TABLET PO SCH (09:45)
[2018-07-22] MEDS: METOPROLOL TARTRATE 100 MG TABLET PO SCH (09:45)
[2018-07-22] MEDS: BUDESONIDE/FORMOTEROL 160-4.5 INHALER 6 GM INH SCH (09:46)
[2018-07-25 13:43] LABS: Folate 6.9 NG/ML (5.4-24.0); Vitamin B12 627 PG/ML (211-911)
== END 2018-07-22 11:21 | disposition home or self-care (01) | DRG 191 ==
LOC: N.TELES
PROVIDERS: ADMIT Family Medicine; ATTEND Family Medicine

== ENCOUNTER 2018-08-20 17:42 | Inpatient (IN) ==
[2018-08-20 18:10] LABS: Basophils # 0.1 10*3/uL (0.0-0.2); Basophils % 1.2 % (0.0-0.8); Eosinophils # 0.4 10*3/uL (0.0-0.87); Eosinophils % 4.2 % (0.00-10.9); Hematocrit 33.1 VOL% (42.0-52.0); Hemoglobin 9.6 GM/DL (14.0-18.0); Immature Granulocytes % 0.7 %; Immature Granulocytes Absolute 0.06 #; Lymphocytes # 1.6 10*3/uL (1.4-4.0); Lymphocytes % 17.2 % (21.2-54.2); Mean Corpuscular Hemoglobin 24 PG (27-34); Mean Corpuscular Volume 81.9 FL (87-102); Monocytes # 0.8 10*3/uL (0.11-0.8); Monocytes % 8.9 % (1.7-12.7); NRBC # 0.09 10*3/uL; Neutrophils # 6.2 10*3/uL (1.4-7.4); Neutrophils % 67.8 % (38.7-73.9); Platelet Count 411 T/CUMM (130-400); Red Blood Count 4.04 MC/CUMM (3.8-5.5); Red Cell Distribution Width 20.4 % (9.3-17.3); White Blood Count 9.1 T/CUMM (4-12)
[2018-08-20 18:18] LABS: INR 1.1; PT Patient Result 12.3 SECS; Partial Thromboplastin Time 34.5 SECS (0-40)
[2018-08-20 18:30] LABS: Albumin 2.3 G/DL (3.4-5.0); Bilirubin,Total 0.4 MG/DL (0.2-1.0); Calcium 8.5 MG/DL (8.5-10.1); Osmolality,Calculated 287.6 MOS/KG (273-304); Total Protein 7.6 G/DL (6.4-8.3)
[2018-08-20] MEDS ORDERED: PANTOPRAZOLE 40 MG VIAL IV STA (18:53)
[2018-08-20] MEDS ORDERED: LOPERAMIDE 2 MG CAPSULE PO STA (18:53)
[2018-08-20] MEDS ORDERED: metroNIDAZOLE INJ 500 MG in PREMIX 1 EACH IV STA (18:53)
[2018-08-20] MEDS ORDERED: ONDANSETRON 4 MG/2 ML VIAL IV STA (18:53)
[2018-08-20 19:18] LABS: Troponin I 0.403 NG/ML (0.00-0.045)
[2018-08-20] MEDS ORDERED: DEXTROSE 50% 25 GM/50 ML VIAL IV STA (20:08)
[2018-08-20] MEDS ORDERED: DEXTROSE 50% 25 GM/50 ML SYRINGE IV ONE (20:20)
[2018-08-20] MEDS ORDERED: FUROSEMIDE 40 MG/4 ML VIAL IV STA (20:53)
[2018-08-20] MEDS ORDERED: ONDANSETRON 4 MG/2 ML VIAL IV PRN (20:54)
[2018-08-20] MEDS ORDERED: GLUCAGON 1 MG VIAL IM PRN (20:54)
[2018-08-20] MEDS ORDERED: DEXTROSE 50% 25 GM/50 ML SYRINGE IV PRN (20:54)
[2018-08-20] MEDS ORDERED: ACETAMINOPHEN 500 MG TABLET PO PRN (20:54)
[2018-08-20] MEDS: METOPROLOL TARTRATE 100 MG TABLET PO SCH (22:34)
[2018-08-20] MEDS: SUCRALFATE 1 GM TABLET PO SCH (22:34)
[2018-08-20] MEDS: DILTIAZEM CD 180 MG CAPSULE PO SCH (22:35)
[2018-08-20] MEDS: METOCLOPRAMIDE 5 MG TABLET PO SCH (22:35)
[2018-08-20] MEDS: APIXABAN 5 MG TABLET PO SCH (22:36)
[2018-08-20] MEDS: TAMSULOSIN 0.4 MG CAPSULE PO SCH (22:41)
[2018-08-20] MEDS: PRAVASTATIN 40 MG TABLET PO SCH (22:46)
[2018-08-20] MEDS: INSULIN REGULAR 100 UNIT/ML SUBCUT SCH (22:47)
[2018-08-21] MEDS: ALBUTEROL/IPRATROPIUM 3 ML NEB RESP TX SCH ×4 (01:15→19:03)
[2018-08-21] MEDS: metroNIDAZOLE INJ 500 MG in PREMIX 1 EACH IV SCH ×4 (02:20→21:19)
[2018-08-21 04:08] LABS: Hemoglobin 8.2 GM/DL (14.0-18.0); Red Blood Count 3.44 MC/CUMM (3.8-5.5)
[2018-08-21 04:09] LABS: Basophils # 0.1 10*3/uL (0.0-0.2); Basophils % 1.1 % (0.0-0.8); Eosinophils # 0.6 10*3/uL (0.0-0.87); Eosinophils % 7.7 % (0.00-10.9); Hematocrit 28.2 VOL% (42.0-52.0); Immature Granulocytes % 0.5 %; Immature Granulocytes Absolute 0.04 #; Lymphocytes # 1.1 10*3/uL (1.4-4.0); Lymphocytes % 13.7 % (21.2-54.2); Mean Corpuscular HGB Conc 29.1 GM/DL (32-36); Mean Corpuscular Hemoglobin 24 PG (27-34); Monocytes # 0.8 10*3/uL (0.11-0.8); Monocytes % 10.1 % (1.7-12.7); NRBC # 0.06 10*3/uL; Neutrophils # 5.3 10*3/uL (1.4-7.4); Neutrophils % 66.9 % (38.7-73.9); Platelet Count 323 T/CUMM (130-400); Red Cell Distribution Width 20.1 % (9.3-17.3)
[2018-08-21 04:39] LABS: Blood Urea Nitrogen 14 MG/DL (7-18); Calcium 8.1 MG/DL (8.5-10.1); Osmolality,Calculated 288.4 MOS/KG (273-304); Potassium 3.1 MMOL/L (3.5-5.1); Sodium 147 MMOL/L (136-145)
[2018-08-21 04:42] LABS: Troponin I 0.309 NG/ML (0.00-0.045)
[2018-08-21 04:43] LABS: Glucose 35 MG/DL (74-106)
[2018-08-21] MEDS: INSULIN REGULAR 100 UNIT/ML SUBCUT SCH ×4 (07:38→21:16)
[2018-08-21] MEDS: POTASSIUM CHLORIDE 20 MEQ TABLET PO PRN ×4 (08:54→16:09)
[2018-08-21] MEDS: THEOPHYLLINE ER (24 HR) 200 MG CAPSULE PO SCH (08:54)
[2018-08-21] MEDS: APIXABAN 5 MG TABLET PO SCH (08:54)
[2018-08-21] MEDS: METOCLOPRAMIDE 5 MG TABLET PO SCH ×4 (08:54→21:15)
[2018-08-21] MEDS: METOPROLOL TARTRATE 100 MG TABLET PO SCH ×2 (08:54→21:15)
[2018-08-21] MEDS: ASPIRIN CHEW 81 MG TABLET PO SCH (08:55)
[2018-08-21] MEDS: metFORMIN 500 MG TABLET PO SCH ×2 (08:55→16:08)
[2018-08-21] MEDS: PANTOPRAZOLE 40 MG TABLET PO SCH (08:55)
[2018-08-21] MEDS: SUCRALFATE 1 GM TABLET PO SCH ×4 (08:55→21:15)
[2018-08-21] MEDS ORDERED: ALBUTEROL 2.5 MG/3 ML NEB RESP TX PRN (13:59)
[2018-08-21] MEDS: DILTIAZEM CD 180 MG CAPSULE PO SCH (21:15)
[2018-08-21] MEDS: TAMSULOSIN 0.4 MG CAPSULE PO SCH (21:15)
[2018-08-21] MEDS: SIMVASTATIN 20 MG TABLET PO SCH (21:15)
[2018-08-21] MEDS: BUDESONIDE/FORMOTEROL 160-4.5 INHALER 6 GM INH SCH (21:20)
[2018-08-21] MEDS: PRAVASTATIN 40 MG TABLET PO SCH (21:33)
[2018-08-22] MEDS: ALBUTEROL/IPRATROPIUM 3 ML NEB RESP TX SCH ×4 (00:22→19:57)
[2018-08-22] MEDS: metroNIDAZOLE INJ 500 MG in PREMIX 1 EACH IV SCH ×4 (02:50→20:52)
[2018-08-22 05:42] LABS: Basophils # 0.1 10*3/uL (0.0-0.2); Basophils % 1.3 % (0.0-0.8); Eosinophils # 0.8 10*3/uL (0.0-0.87); Eosinophils % 11.6 % (0.00-10.9); Hemoglobin 7.8 GM/DL (14.0-18.0); Immature Granulocytes % 0.4 %; Immature Granulocytes Absolute 0.03 #; Lymphocytes # 1.2 10*3/uL (1.4-4.0); Lymphocytes % 17.5 % (21.2-54.2); Mean Corpuscular HGB Conc 28.9 GM/DL (32-36); Mean Corpuscular Hemoglobin 24 PG (27-34); Mean Corpuscular Volume 81.3 FL (87-102); Mean Platelet Volume 11.3 FL (9.6-12.0); Monocytes # 0.7 10*3/uL (0.11-0.8); Monocytes % 10.3 % (1.7-12.7); NRBC # 0.03 10*3/uL; Neutrophils # 4.1 10*3/uL (1.4-7.4); Neutrophils % 58.9 % (38.7-73.9); Platelet Count 300 T/CUMM (130-400); Red Blood Count 3.32 MC/CUMM (3.8-5.5); Red Cell Distribution Width 19.9 % (9.3-17.3)
[2018-08-22 05:55] LABS: Calcium 7.9 MG/DL (8.5-10.1); Osmolality,Calculated 285.8 MOS/KG (273-304); Potassium 4.4 MMOL/L (3.5-5.1)
[2018-08-22 06:11] LABS: Eosinophils 7 % (0-10); Hypochromasia 2+; Lymphocytes 17 % (20-55); Platelet Estimate Normal; Segmented Neutrophils 69 % (50-85); Total Cells Counted 100
[2018-08-22] MEDS: INSULIN REGULAR 100 UNIT/ML SUBCUT SCH ×4 (08:57→20:53)
[2018-08-22 09:50] LABS: % Iron Saturation 9.9 % (18-50); Ferritin 35.5 ng/ml (26-388)
[2018-08-22] MEDS: METOCLOPRAMIDE 5 MG TABLET PO SCH ×4 (11:10→20:53)
[2018-08-22] MEDS: SUCRALFATE 1 GM TABLET PO SCH ×4 (11:10→20:53)
[2018-08-22] MEDS: metFORMIN 500 MG TABLET PO SCH ×2 (11:11→16:31)
[2018-08-22] MEDS ORDERED: PROPOFOL 200 MG/20 ML VIAL IV ONE (12:53)
[2018-08-22] MEDS ORDERED: LIDOCAINE 2% 5 ML VIAL ONE (12:53)
[2018-08-22] MEDS ORDERED: ETOMIDATE 20 MG/10 ML VIAL IV ONE (12:53)
[2018-08-22] MEDS: THEOPHYLLINE ER (24 HR) 200 MG CAPSULE PO SCH (14:15)
[2018-08-22] MEDS: PANTOPRAZOLE 40 MG TABLET PO SCH (14:19)
[2018-08-22] MEDS: ASPIRIN CHEW 81 MG TABLET PO SCH (14:19)
[2018-08-22] MEDS: METOPROLOL TARTRATE 100 MG TABLET PO SCH ×2 (14:19→20:53)
[2018-08-22] MEDS: BUDESONIDE/FORMOTEROL 160-4.5 INHALER 6 GM INH SCH ×2 (14:20→21:01)
[2018-08-22] MEDS: OLMESARTAN 20 MG TABLET PO SCH (14:20)
[2018-08-22] MEDS: TAMSULOSIN 0.4 MG CAPSULE PO SCH (20:53)
[2018-08-22] MEDS: DILTIAZEM CD 180 MG CAPSULE PO SCH (20:53)
[2018-08-22] MEDS: SIMVASTATIN 20 MG TABLET PO SCH (20:53)
[2018-08-23] MEDS: ALBUTEROL/IPRATROPIUM 3 ML NEB RESP TX SCH ×3 (01:03→13:22)
[2018-08-23] MEDS: metroNIDAZOLE INJ 500 MG in PREMIX 1 EACH IV SCH ×2 (01:32→08:07)
[2018-08-23 04:31] LABS: Basophils # 0.1 10*3/uL (0.0-0.2); Eosinophils # 0.9 10*3/uL (0.0-0.87); Eosinophils % 11.5 % (0.00-10.9); Hematocrit 28.3 VOL% (42.0-52.0); Hemoglobin 8.2 GM/DL (14.0-18.0); Immature Granulocytes % 0.4 %; Immature Granulocytes Absolute 0.03 #; Lymphocytes # 1.3 10*3/uL (1.4-4.0); Lymphocytes % 16.2 % (21.2-54.2); Mean Corpuscular Hemoglobin 24 PG (27-34); Mean Corpuscular Volume 81.6 FL (87-102); Mean Platelet Volume 11.3 FL (9.6-12.0); Monocytes # 0.8 10*3/uL (0.11-0.8); Monocytes % 10.3 % (1.7-12.7); NRBC # 0.03 10*3/uL; Neutrophils # 4.7 10*3/uL (1.4-7.4); Neutrophils % 60.6 % (38.7-73.9); Platelet Count 303 T/CUMM (130-400); Red Blood Count 3.47 MC/CUMM (3.8-5.5); White Blood Count 7.7 T/CUMM (4-12)
[2018-08-23 04:39] LABS: Calcium 8.5 MG/DL (8.5-10.1); Potassium 4.2 MMOL/L (3.5-5.1)
[2018-08-23 05:20] LABS: Band Neutrophils 3 % (0-10); Eosinophils 9 % (0-10); Lymphocytes 17 % (20-55); Nucleated Red Blood Cells 0 (0-5); Platelet Estimate Normal; Segmented Neutrophils 61 % (50-85); Total Cells Counted 100
[2018-08-23] MEDS: INSULIN REGULAR 100 UNIT/ML SUBCUT SCH ×2 (08:00→11:54)
[2018-08-23] MEDS: OLMESARTAN 20 MG TABLET PO SCH (08:05)
[2018-08-23] MEDS: PANTOPRAZOLE 40 MG TABLET PO SCH (08:05)
[2018-08-23] MEDS: THEOPHYLLINE ER (24 HR) 200 MG CAPSULE PO SCH (08:06)
[2018-08-23] MEDS: ASPIRIN CHEW 81 MG TABLET PO SCH (08:06)
[2018-08-23] MEDS: METOCLOPRAMIDE 5 MG TABLET PO SCH ×2 (08:06→11:59)
[2018-08-23] MEDS: metFORMIN 500 MG TABLET PO SCH (08:06)
[2018-08-23] MEDS: METOPROLOL TARTRATE 100 MG TABLET PO SCH (08:06)
[2018-08-23] MEDS: SUCRALFATE 1 GM TABLET PO SCH ×2 (08:06→11:59)
[2018-08-23] MEDS: BUDESONIDE/FORMOTEROL 160-4.5 INHALER 6 GM INH SCH (08:14)
[2018-08-23 12:56] VITALS: BP 155/71
[2018-08-23 14:13] LABS: Apearance,Urine Slightly Hazy (Clear); Bilirubin,Urine Negative (Negative); Blood, Urine Negative (Negative); Glucose,Urine (UA) Negative (Negative); Hyaline Casts,Urine 19 /LPF (0-3); Ketones,Urine 5 mg/dL (Negative); Mucus,Urine Many /LPF (Occasional); Nitrite,Urine Negative (Negative); Protein,Urine >=500 MG/DL; RBC,Urine 4 /HPF (0-4); Squamous Epithelial Cell,Urine Occasional /HPF (0-10); Urine Color Amber (Yellow); Urine Specific Gravity 1.031 (1.001-1.035); Urine Urobilinogen < 2.0 EU/DL (0.2-1.0); WBC,Urine 6 /HPF (0-6)
== END 2018-08-23 15:36 | disposition home or self-care (01) | DRG 378 ==
LOC: N.ED 17:42 → N.EDINP 20:53 → N.TELES 21:31
PROVIDERS: ADMIT Internal Medicine; ATTEND Internal Medicine